=== PATIENT | male | born 1950 | race Caucasian/White ===

== ENCOUNTER 2021-01-14 14:42 | Observation (INO) | payer MEDICARE, MEDICAID ==
[2021-01-14] MEDS ORDERED: Sodium Chloride 0.9% 10 ML Syringe FLUSH PRN (15:13)
[2021-01-14] MEDS ORDERED: Sodium Chloride 0.9% 2.5 ML Syringe FLUSH PRN (15:13)
[2021-01-14] MEDS ORDERED: Sodium Chloride 0.9% 1,000 ML IV ONE (15:14)
--- NOTE | 2021-01-14 15:21 | EDM.PDOC ---
ED HPI GENERAL MEDICAL PROBLEM - General Chief Complaint: Gastrointestinal Problem Stated Complaint: PCP WANTED PT TO BE SEEN DUE TO BLOOD RESULTS Time Seen by Provider: 01/14/21 14:48 - History of Present Illness INITIAL COMMENTS - FREE TEXT/NARRATIVE: History of present illness: [] The patient is having diarrhea for 2 weeks and back pain for longer than that. The diarrhea is gotten the point where it is liquid whenever he eats however the most he said 1 day is 4 stools. They are dark brown not black. He is lightheaded when he stands up. He feels dizzy when he stands up. He has cramps before he eats and after he eats they get worse then he has diarrhea bowel movement. He is not vomiting. He does not have fever and chills but does get sweaty frequently. The patient had an MRI for his back pain and went to the clinic today. In the clinic they ordered lab that was done at our facility. The lab work revealed elevation of BUN/creatinine and potassium and he was sent over here for further evaluation. Review of systems: As per history of present illness and below otherwise all systems reviewed and negative. Past medical history: As per history of present illness and as reviewed below otherwise noncontri butory. Surgical history: As per history of present illness and as reviewed below otherwise noncontributory. Social history: No reported history of drug or alcohol abuse. Family history: As per history of present illness and as reviewed below otherwise noncontributory. Physical exam: Constitutional - well developed, well-nourished and in no acute distress HEENT - normocephalic, no evidence of trauma - external nose and mouth normal - no mass in neck and no JVD - mucosae moist EYES - full EOM, PERRL, no icterus - no evidence of inflammation, injection, or drainage Respiratory - no respiratory distress, equal bilateral expansion, lungs clear to auscultation and no abnormal lung sounds Cardiovascular - Regular Rhythm with S1 and S2 appreciated and no murmur, gallop or rub. GI - abdomen soft without distension or organomegaly - normal bowel sounds - no guard or rebound Musculoskeletal no gross deformity of long bones or joints - no tenderness, swelling or edema Neurologic - Alert and oriented times four - CN II-XII grossly intact - motor sensory and coordination symmetrically normal Psychiatric - appropriate mood and affect with normal thought content Hematologic - No petechiae or purpura - mucosa appropriate color and sclera not pale - normal nail bed color and refill Integument -diaphoretic-no rash or evidence of trauma - normal turgor Diagnostics: [] Therapeutics: [] Impression: [] Plan: [] Definitive disposition and diagnosis as appropriate pending reevaluation and review of above. back and bilateral lower abdomen Pain Score (Numeric/FACES): 4 - Related Data Allergies Allergy/AdvReac Type Severity Reaction Status Date / Time No Known Allergies Allergy Verified 01/14/21 15:10 Past Medical History HEENT History: Reports: None Cardiovascular History: Reports: Other (See Below) Other Cardiovascular History: CABG Respiratory History: Reports: None Gastrointestinal History: Reports: None Genitourinary History: Reports: None Musculoskeletal History: Reports: None Neurological History: Reports: None Psychiatric History: Reports: None Endocrine/Metabolic History: Reports: None Hematologic History: Reports: None Immunologic History: Reports: None Oncologic (Cancer) History: Reports: None Dermatologic History: Reports: None - Infectious Disease History Infectious Disease History: Reports: None - Past Surgical History Head Surgeries/Procedures: Reports: None Social & Family History - Family History Family Medical History: No Pertinent Family History - Tobacco Use Tobacco Use Status *Q: Never Tobacco User Second Hand Smoke Exposure: No - Caffeine Use Caffeine Use: Reports: None - Recreational Drug Use Recreational Drug Use: No ED ROS GENERAL - Review of Systems Review Of Systems: Comprehensive ROS is negative, except as noted in HPI. ED EXAM, GENERAL - Physical Exam Exam: See Below Free Text/Narrative:: My physical exam is in the HPI #1 Interpretation EKG Interpretation Comments: The done 01/14/2021 at 1548 hrs. sinus rhythm heart rate 78 ND 213 QT duration [address] elevation no prior for comparison impression no obvious acute injury Course - Vital Signs Text/Narrative:: 1625 hrs. patient has renal failure or dehydration with prerenal azotemia. Hyperkalemia also. Plan to culture stool and test for Covid and placed in observation to hydrate and recheck labs in the morning. Discussed with Dr. Carrera and he agreed to place patient in observation status on his service. Last Recorded V/S: Last Vital Signs Temp 36.6 C 01/14/21 15:07 Pulse 82 01/14/21 15:11 Resp 18 01/14/21 15:11 BP 134/50 L 01/14/21 15:07 Pulse Ox 98 01/14/21 15:11 - Orders/Labs/Meds Orders: Active Orders 24 hr Category Date Time Status Admission Status [Patient Status] [ADT] Stat ADT 01/14/21 16:50 Ordered CORONAVIRUS COVID-19 KEVEN [MOLEC] Stat Lab 01/14/21 16:24 Ordered STOOL CULTURE/SHIGA TOXIN [MREF] Stat Lab 01/14/21 16:24 Ordered Sodium Chloride 0.9% [Saline Flush] Med 01/14/21 15:13 Active 10 ml FLUSH ASDIRECTED PRN Sodium Chloride 0.9% [Saline Flush] Med 01/14/21 15:13 Active 2.5 ml FLUSH ASDIRECTED PRN Saline Lock Insert [OM.PC] Stat Oth 01/14/21 15:13 Ordered Medication Orders Sodium Chloride (Sodium Chloride 0.9% 10 Ml Syringe) 10 ml FLUSH ASDIRECTED PRN PRN Reason: Keep Vein Open Last Admin: 01/14/21 15:39 Dose: 10 ml Documented by: LINDA Sodium Chloride (Sodium Chloride 0.9% 2.5 Ml Syringe) 2.5 ml FLUSH ASDIRECTED PRN PRN Reason: Keep Vein Open Last Admin: 01/14/21 15:38 Dose: 2.5 ml Documented by: LINDA Labs: Laboratory Tests 01/14/21 01/14/21 Range/Units 15:31 15:31 WBC 10.08 (4.0-11.0) K/uL RBC 4.52 (4.50-5.90) M/uL Hgb 13.7 (13.0-17.0) g/dL Hct 39.7 (38.0-50.0) % MCV 87.8 (80.0-98.0) fL MCH 30.3 (27.0-32.0) pg MCHC 34.5 (31.0-37.0) g/dL RDW Std Deviation 46.7 (28.0-62.0) fl RDW Coeff of Kasey 15 (11.0-15.0) % Plt Count 163 (150-400) K/uL MPV 10.40 (7.40-12.00) fL Neut % (Auto) 67.6 (48.0-80.0) % Lymph % (Auto) 24.5 (16.0-40.0) % [place] % (Auto) 4.1 (0.0-15.0) % Eos % (Auto) 3.6 (0.0-7.0) % Baso % (Auto) 0.2 (0.0-1.5) % Neut # (Auto) 6.8 H (1.4-5.7) K/uL Lymph # (Auto) 2.5 H (0.6-2.4) K/uL [place] # (Auto) 0.4 (0.0-0.8) K/uL Eos # (Auto) 0.4 (0.0-0.7) K/uL Baso # (Auto) 0.0 (0.0-0.1) K/uL Nucleated RBC % 0.0 /100WBC Nucleated RBCs # 0 K/uL Sodium 139 (136-148) mmol/L Potassium 5.5 H (3.5-5.1) mmol/L Chloride 107 (98-107) mmol/L Carbon Dioxide 16.4 L (21.0-32.0) mmol/L BUN 60 H (7.0-18.0) mg/dL Creatinine 2.0 H (0.8-1.3) mg/dL Est Cr Clr Drug Dosing 33.25 mL/min Estimated GFR (MDRD) 33.2 ml/min Glucose 160 H (74-106) mg/dL Calcium 9.1 (8.5-10.1) mg/dL Magnesium 2.3 (1.8-2.4) mg/dL Total Bilirubin 0.4 (0.2-1.0) mg/dL AST 31 (15-37) IU/L ALT 63 (14-63) IU/L Alkaline Phosphatase 119 H (46-116) U/L Troponin I < 0.050 (0.000-0.056) ng/mL Total Protein 7.7 (6.4-8.2) g/dL Albumin 3.8 (3.4-5.0) g/dL Globulin 3.9 (2.6-4.0) g/dL Albumin/Globulin Ratio 1.0 (0.9-1.6) Meds: Medications Generic Name Dose Route Start Last Admin Trade Name Freq PRN Reason Stop Dose Admin Sodium Chloride 10 ml 08/10/21 15:13 01/14/21 15:39 Sodium Chloride 0.9% 10 Ml Syringe FLUSH 10 ml ASDIRECTED PRN Administration Keep Vein Open Sodium Chloride 2.5 ml 01/14/21 15:13 01/14/21 15:38 Sodium Chloride 0.9% 2.5 Ml Syringe FLUSH 2.5 ml ASDIRECTED PRN Administration Keep Vein Open Discontinued Medications Generic Name Dose Route Start Last Admin Trade Name Lidia PRN Reason Stop Dose Admin Dicyclomine HCl 10 mg 01/14/21 15:41 01/14/21 16:04 Dicyclomine 10 Mg Cap PO 01/14/21 15:42 10 mg ONETIME ONE Administration Sodium Chloride 1,000 mls @ 1,000 mls/hr 01/14/21 15:14 01/14/21 15:38 Normal Saline IV 01/14/21 16:13 1,000 mls/hr .Bolus ONE Administration Departure - Departure Time of Disposition: 16:52 Disposition: Refer to Observation Condition: Good Clinical Impression: Diarrhea, Dehydration, Acute renal injury, Hyperkalemia - Discharge Information Referrals: Tamera Hester DO [Primary Care Provider] - Forms: ED Department Discharge Sepsis Event Note (ED) - Evaluation Sepsis Screening Result: No Definite Risk - Focused Exam Vital Signs: Vital Signs Temp Pulse Resp BP Pulse Ox 01/14/21 15:11 82 18 98 01/14/21 15:07 36.6 C 84 18 134/50 L 97 - My Orders Last 24 Hours: My Active Orders 01/14/21 15:13 Sodium Chloride 0.9% [Saline Flush] 10 ml FLUSH ASDIRECTED PRN Sodium Chloride 0.9% [Saline Flush] 2.5 ml FLUSH ASDIRECTED PRN Saline Lock Insert [OM.PC] Stat 01/14/21 16:24 CORONAVIRUS COVID-19 KEVEN [MOLEC] Stat STOOL CULTURE/SHIGA TOXIN [MREF] Stat 01/14/21 16:50 Admission Status [Patient Status] [ADT] Stat - Assessment/Plan Last 24 Hours: My Active Orders 01/14/21 15:13 Sodium Chloride 0.9% [Saline Flush] 10 ml FLUSH ASDIRECTED PRN Sodium Chloride 0.9% [Saline Flush] 2.5 ml FLUSH ASDIRECTED PRN Saline Lock Insert [OM.PC] Stat 01/14/21 16:24 CORONAVIRUS COVID-19 KEVEN [MOLEC] Stat STOOL CULTURE/SHIGA TOXIN [MREF] Stat 01/14/21 16:50 Admission Status [Patient Status] [ADT] Stat
[2021-01-14] MEDS ORDERED: Dicyclomine 10 MG Cap PO ONE (15:41)
[2021-01-14 16:04] LABS: BLOOD UREA NITROGEN,BUN 60 mg/dL (7.0-18.0); CARBON DIOXIDE,CO2 16.4 mmol/L (21.0-32.0); CHLORIDE,CL 107 mmol/L (98-107); GLUCOSE RANDOM 160 mg/dL (74-106); POTASSIUM,K 5.5 mmol/L (3.5-5.1); SODIUM,NA 139 mmol/L (136-148)
--- NOTE | 2021-01-14 16:09 | CR ---
INDICATION: Back chest pain TECHNIQUE: Chest radiograph 1 view COMPARISON: None FINDINGS: Mediastinum: The mediastinum is normal in appearance. The heart silhouette is normal in size and morphology. The patient is status post coronary artery bypass surgery. Lung: Both lungs are unremarkable in appearance. No sign of pleural effusion seen. No pneumothorax is identified. Bone and Soft tissue: Unremarkable for age. IMPRESSION: 1. No acute cardiopulmonary disease is seen. Dictated by: Ventura Boucher MD @ 01/14/2021 16:07:23 (Electronically Signed)
[2021-01-14] MEDS ORDERED: Acetaminophen/HYDROcodone 325-10 MG Tab PO ONE (17:27)
[2021-01-14] MEDS ORDERED: Cyclobenzaprine 10 MG Tab PO ONE (17:29)
--- NOTE | 2021-01-14 18:01 | PCM.HP.2 ---
H&P History of Present Illness - General Date of Service: 01/14/21 Admit Problem/Dx: Admission Diagnosis/Problem Admission Diagnosis/Problem Hyperkalemia - History of Present Illness Initial Comments - Free Text/Narative: 70-year-old male with a history of DM 2, HTN, CABG 3 vessel 6 years ago and 3 stent placements presents to the ER complaining of diarrhea for 2 weeks. Patient states that he has been experiencing up to 3 watery stools per day associated with abdominal cramping. He states that after eating anything he has an episode of diarrhea and abdominal cramping. Stools are watery, nonbloody with no mucus. He does feel dizzy when he stands too quickly. Patient denies sick contacts. He denies fever, chills, headaches, dysuria, hematuria, palpitations, shortness of breath, joint pain or nausea/vomiting. Patient does have a history of chronic back pain. Patient has a history of DM and his last A1c was 5.6 which was done 3 weeks ago. Patient also states he has a history of pancreatitis. Patient had lab work done earlier today as well as a back MRI. CMP revealed elevated BUN and creatinine and potassium of 5.5. While in the ER patient had one episode of central nonradiating anterior chest pain for 1 minute. No left arm or jaw pain. EKG was done which showed sinus rhythm. Troponin negative. Pt is not taking nitroglycerin. ER course: Temperature 36.6. Pulse 82. RR 18. Blood pressure 134/50. 98% on room air. Stool cultures pending. WBC 10. Hemoglobin 13.7. Platelet 163. Sodium 139. Potassium 5.5. Chloride 107. Bicarb 16.4. BUN 60. Creatinine 2.0. Blood glucose 160. Calcium 9.1. Magnesium 2.3. Alk phos 119. Troponin negative. Patient received dicyclomine 10 mg. 1 L normal saline bolus. Chest x-ray: No acute cardiopulmonary disease. EKG 1548 hrs. sinus rhythm heart rate 78 AR 213 QT duration [address] elevation no prior for comparison impression no obvious acute injury. Repeat EKG after chest pain episode at 1652 hrs: Sinus rhythm, HR 78, AR 215, axis 57, normal QRS, normal ST and T, prolonged AR interval compared to previous EKG. No change impression, no acute injury obvious. Past medical history: Medical records unavailable. Peripheral vascular disease, DM 2, HTN, CABG, questionable pancreatic pathology, chronic back pain secondary to disc displacement. Past surgical history: History of back surgeries. Medications: Baclofen 20 mg 3 times daily as needed. Benazepril 20 mg daily. Empagliflozin 25 mg daily. [place] 5-325 mg twice daily as needed. Insulin degludec 100 units with breakfast. Liraglutide 1.8 mg daily. Prasugrel 10 mg daily. Atorvastatin 40 mg daily. Hydrochlorothiazide 25 mg daily. Allergies: No known drug allergies Social history: Patient is from [place] and moved here 3 months ago to live with his daughter. Quit smoking 2 years ago. Smoked 1 pack/day for 40 years. History of social alcohol use. Denies illicit drug use. CODE STATUS: Full code back and bilateral lower abdomen Pain Score (Numeric/FACES): 4 - Related Data Allergies/Adverse Reactions: Allergies Allergy/AdvReac Type Severity Reaction Status Date / Time No Known Allergies Allergy Verified 01/14/21 15:10 Home Medications: Home Meds Baclofen 20 mg PO TID PRN 01/14/21 [History] Benazepril [Lotensin] 20 mg PO DAILY 01/14/21 [History] Empagliflozin [Jardiance] 25 mg PO QAM 01/14/21 [History] Hydrocodone/Acetaminophen [HYDROcodone-Acetaminophen 5-325 MG] 1 each PO BID PRN 01/14/21 [History] Insulin Degludec [Tresiba] 100 unit SQ ACBREAKFAST 01/14/21 [History] Liraglutide [Victoza 2-Roman] 1.8 mg SQ DAILY 01/14/21 [History] Prasugrel HCl [Effient] 10 mg PO DAILY 01/14/21 [History] atorvaSTATin [Lipitor] 40 mg PO BEDTIME 01/14/21 [History] hydroCHLOROthiazide [Hydrochlorothiazide] 25 mg PO DAILY 01/14/21 [History] Past Medical History HEENT History: Reports: None Cardiovascular History: Reports: Other (See Below) Other Cardiovascular History: CABG Respiratory History: Reports: None Gastrointestinal History: Reports: None Genitourinary History: Reports: None Musculoskeletal History: Reports: None Neurological History: Reports: None Psychiatric History: Reports: None Endocrine/Metabolic History: Reports: None Hematologic History: Reports: None Immunologic History: Reports: None Oncologic (Cancer) History: Reports: None Dermatologic History: Reports: None - Infectious Disease History Infectious Disease History: Reports: None - Past Surgical History Head Surgeries/Procedures: Reports: None Social & Family History - Family History Family Medical History: No Pertinent Family History - Tobacco Use Tobacco Use Status *Q: Never Tobacco User Second Hand Smoke Exposure: No - Caffeine Use Caffeine Use: Reports: None - Recreational Drug Use Recreational Drug Use: No H&P Review of Systems - Review of Systems: Review Of Systems: Comprehensive ROS is negative, except as noted in HPI. Exam - Exam Exam: See Below - Vital Signs Vital Signs: Last Vital Signs Temp 97.8 F 01/14/21 15:07 Pulse 82 01/14/21 15:11 Resp 18 01/14/21 15:11 BP 134/50 L 01/14/21 15:07 Pulse Ox 98 01/14/21 15:11 Weight: 178 lb - Exam General: Alert, Oriented, Cooperative HEENT: Conjunctiva Clear, EOMI. No: Mucosa Moist & [place] Neck: Supple. No: Lymphadenopathy, JVD Lungs: Clear to Auscultation. No: Crackles, Rales, Wheezing Cardiovascular: Regular Rate, Regular Rhythm, Normal S1, Normal S2 GI/Abdominal Exam: Soft, Non-Tender, No Distention. No: Distended, Guarding, Rigid, Rebound Back Exam: Paraspinal Tenderness Extremities: Normal Inspection. No: Pedal Edema, Curtis's Sign, Leg Pain Peripheral Pulses: 2+: Dorsalis Pedis (L), Dorsalis Pedis (R) Skin: Warm, Intact Neurological: Reflexes Equal Bilateral Neuro Extensive - Mental Status: Alert, Oriented x3, Normal Mood/Affect, Normal Cognition, Memory Intact Psychiatric: Alert, Normal Affect - Patient Data Lab Results Last 24 hrs: Laboratory Results - last 24 hr 01/14/21 01/14/21 01/14/21 Range/Units 15:31 15:31 15:31 WBC 10.08 (4.0-11.0) K/uL RBC 4.52 (4.50-5.90) M/uL Hgb 13.7 (13.0-17.0) g/dL Hct 39.7 (38.0-50.0) % MCV 87.8 (80.0-98.0) fL MCH 30.3 (27.0-32.0) pg MCHC 34.5 (31.0-37.0) g/dL RDW Std Deviation 46.7 (28.0-62.0) fl RDW Coeff of Kasey 15 (11.0-15.0) % Plt Count 163 (150-400) K/uL MPV 10.40 (7.40-12.00) fL Neut % (Auto) 67.6 (48.0-80.0) % Lymph % (Auto) 24.5 (16.0-40.0) % [place] % (Auto) 4.1 (0.0-15.0) % Eos % (Auto) 3.6 (0.0-7.0) % Baso % (Auto) 0.2 (0.0-1.5) % Neut # (Auto) 6.8 H (1.4-5.7) K/uL Lymph # (Auto) 2.5 H (0.6-2.4) K/uL [place] # (Auto) 0.4 (0.0-0.8) K/uL Eos # (Auto) 0.4 (0.0-0.7) K/uL Baso # (Auto) 0.0 (0.0-0.1) K/uL Nucleated RBC % 0.0 /100WBC Nucleated RBCs # 0 K/uL Sodium 139 (136-148) mmol/L Potassium 5.5 H (3.5-5.1) mmol/L Chloride 107 (98-107) mmol/L Carbon Dioxide 16.4 L (21.0-32.0) mmol/L BUN 60 H (7.0-18.0) mg/dL Creatinine 2.0 H (0.8-1.3) mg/dL Est Cr Clr Drug Dosing 33.25 mL/min Estimated GFR (MDRD) 33.2 ml/min Glucose 160 H (74-106) mg/dL Calcium 9.1 (8.5-10.1) mg/dL Magnesium 2.3 (1.8-2.4) mg/dL Total Bilirubin 0.4 (0.2-1.0) mg/dL AST 31 (15-37) IU/L ALT 63 (14-63) IU/L Alkaline Phosphatase 119 H (46-116) U/L Troponin I < 0.050 < 0.050 (0.000-0.056) ng/mL Total Protein 7.7 (6.4-8.2) g/dL Albumin 3.8 (3.4-5.0) g/dL Globulin 3.9 (2.6-4.0) g/dL Albumin/Globulin Ratio 1.0 (0.9-1.6) Result Diagrams: 01/14/21 15:31 01/14/21 15:31 Sepsis Event Note - Evaluation Sepsis Screening Result: No Definite Risk - Focused Exam Vital Signs: Vital Signs Temp Pulse Resp BP Pulse Ox 01/14/21 15:11 82 18 98 01/14/21 15:07 97.8 F 84 18 134/50 L 97 - Problem List (1) Acute kidney injury SNOMED Code(s): 69907844, 53619213 ICD Code: N17.9 - ACUTE KIDNEY FAILURE, UNSPECIFIED Status: Acute Current Visit: Yes (2) Atypical chest pain SNOMED Code(s): 701737157 ICD Code: R07.89 - OTHER CHEST PAIN Status: Acute Current Visit: Yes (3) Dehydration SNOMED Code(s): 85811547 ICD Code: E86.0 - DEHYDRATION Status: Acute Current Visit: Yes (4) Diarrhea SNOMED Code(s): 20611818 ICD Code: R19.7 - DIARRHEA, UNSPECIFIED Status: Acute Current Visit: Yes (5) Hyperkalemia SNOMED Code(s): 41818609 ICD Code: E87.5 - HYPERKALEMIA Status: Acute Current Visit: Yes Problem List Initiated/Reviewed/Updated: Yes Orders Last 24hrs: Active Orders 24 hr Category Date Time Status Admission Status [Patient Status] [ADT] Stat ADT 01/14/21 17:30 Active Telemetry Monitoring [Cardiac Monitoring] [RC] . Care 01/14/21 17:38 Active DIRECTED STOOL CULTURE/SHIGA TOXIN [MREF] Stat Lab 01/14/21 16:24 Ordered TROPONIN I [CHEM] Stat Lab 01/14/21 20:00 Ordered TROPONIN I [CHEM] Stat Lab 01/15/21 00:05 Ordered Sodium Chloride 0.9% [Saline Flush] Med 01/14/21 15:13 Active 10 ml FLUSH ASDIRECTED PRN Sodium Chloride 0.9% [Saline Flush] Med 01/14/21 15:13 Active 2.5 ml FLUSH ASDIRECTED PRN Saline Lock Insert [OM.PC] Stat Oth 01/14/21 15:13 Ordered Medication Orders Sodium Chloride (Sodium Chloride 0.9% 10 Ml Syringe) 10 ml FLUSH ASDIRECTED PRN PRN Reason: Keep Vein Open Last Admin: 01/14/21 15:39 Dose: 10 ml Documented by: LINDA Sodium Chloride (Sodium Chloride 0.9% 2.5 Ml Syringe) 2.5 ml FLUSH ASDIRECTED PRN PRN Reason: Keep Vein Open Last Admin: 01/14/21 15:38 Dose: 2.5 ml Documented by: LINDA Assessment/Plan Comment:: 70-year-old male with a history of CABG, DM and hypertension being admitted for ACS rule out, acute kidney injury, diarrhea and mildly elevated potassium. Monitor the patient on telemetry. Trend troponins. No ischemic changes on EKG. Repeat EKG if patient has another episode of chest pain. Hemoglobin A1c 5.6 (3wks ago). For his YENNY we will start the patient on maintenance fluids. Avoid nephrotoxic medications, no ARIANE inhibitors. Repeat BMP in the morning. Continue antihypertensives. Stool culture pending. Diabetic diet. Sliding scale insulin.
[2021-01-14] MEDS ORDERED: Acetaminophen 325 MG Tab PO PRN (18:35)
[2021-01-14] MEDS ORDERED: Glucagon,Human Recombinant 1 MG Vial IM PRN (18:48)
[2021-01-14] MEDS ORDERED: 50% Dextrose in Water 50 ML Syringe IVPUSH PRN (18:48)
[2021-01-14] MEDS ORDERED: Acetaminophen/HYDROcodone 325-5 MG Tab PO PRN (19:02)
[2021-01-14] MEDS: Sodium Chloride 0.9% 1,000 ML IV SCH (21:24)
[2021-01-15] MEDS: Baclofen 10 MG Tab PO PRN ×3 (00:24→20:23)
[2021-01-15] MEDS: Sodium Chloride 0.9% 1,000 ML IV SCH ×2 (05:34→14:37)
[2021-01-15 06:29] LABS: CARBON DIOXIDE,CO2 15.3 mmol/L (21.0-32.0); POTASSIUM,K 5.2 mmol/L (3.5-5.1)
[2021-01-15] MEDS ORDERED: INSULIN DEGLUDEC 80 UNIT SUBCUT SCH (07:30)
[2021-01-15] MEDS ORDERED: Non-Formulary Medication 1 Each (Insulin Degludec [Tresiba] 100 UNIT/ML Vial) SQ SCH (07:30)
[2021-01-15] MEDS: Insulin Aspart 100 Units/ML 3 ML Pen SUBCUT SCH ×3 (07:49→17:20)
[2021-01-15] MEDS: Prasugrel Hcl [Effient] 10 MG Tablet PO SCH (08:58)
[2021-01-15] MEDS: Acetaminophen/HYDROcodone 325-5 MG Tab PO PRN ×3 (09:31→22:30)
[2021-01-15] MEDS: Insulin Glargine,Human Rec. Analog 100 Units/ML 3 ML Pen SUBCUT SCH (10:29)
--- NOTE | 2021-01-15 11:25 | PCM.PN ---
- General Info Date of Service: 01/15/21 Admission Dx/Problem (Free Text): Admission Diagnosis/Problem Admission Diagnosis/Problem Hyperkalemia Subjective Update: 70-year-old male from [place] is admitted for ACS rule out, YENNY and diarrhea. Patient states that he longer has diarrhea and is feeling slightly better. Patient is a history of chronic back pain and MRI yesterday showed disc protrusion. He does complain of severe back pain and is on [place]. He denies chest pain or palpitations. He denies headaches. He denies muscle pain. He does state he has a history of peripheral vascular disease with stent placement in his left leg. He does complain of some left leg pain which is chronic. - Review of Systems General: Reports: No Symptoms HEENT: Reports: No Symptoms Pulmonary: Reports: No Symptoms Cardiovascular: Reports: No Symptoms Gastrointestinal: Reports: Decreased Appetite Genitourinary: Reports: No Symptoms Musculoskeletal: Reports: Leg Pain Skin: Reports: No Symptoms Neurological: Reports: No Symptoms - Patient Data Vitals - Most Recent: Last Vital Signs Temp 96.5 F L 01/15/21 08:00 Pulse 70 01/15/21 08:00 Resp 16 01/15/21 08:00 BP 123/57 L 01/15/21 08:00 Pulse Ox 96 01/15/21 08:00 Weight - Most Recent: 181 lb 12.8 oz I&O - Last 24 Hours: Intake & Output 01/14/21 01/15/21 01/15/21 22:59 06:59 14:59 Intake Total 1940 Output Total 900 Balance 1040 Lab Results Last 24 Hours: Laboratory Results - last 24 hr 01/14/21 01/14/21 01/14/21 Range/Units 15:31 15:31 15:31 WBC 10.08 (4.0-11.0) K/uL RBC 4.52 (4.50-5.90) M/uL Hgb 13.7 (13.0-17.0) g/dL Hct 39.7 (38.0-50.0) % MCV 87.8 (80.0-98.0) fL MCH 30.3 (27.0-32.0) pg MCHC 34.5 (31.0-37.0) g/dL RDW Std Deviation 46.7 (28.0-62.0) fl RDW Coeff of Kasey 15 (11.0-15.0) % Plt Count 163 (150-400) K/uL MPV 10.40 (7.40-12.00) fL Neut % (Auto) 67.6 (48.0-80.0) % Lymph % (Auto) 24.5 (16.0-40.0) % [place] % (Auto) 4.1 (0.0-15.0) % Eos % (Auto) 3.6 (0.0-7.0) % Baso % (Auto) 0.2 (0.0-1.5) % Neut # (Auto) 6.8 H (1.4-5.7) K/uL Lymph # (Auto) 2.5 H (0.6-2.4) K/uL [place] # (Auto) 0.4 (0.0-0.8) K/uL Eos # (Auto) 0.4 (0.0-0.7) K/uL Baso # (Auto) 0.0 (0.0-0.1) K/uL Nucleated RBC % 0.0 /100WBC Nucleated RBCs # 0 K/uL Sodium 139 (136-148) mmol/L Potassium 5.5 H (3.5-5.1) mmol/L Chloride 107 (98-107) mmol/L Carbon Dioxide 16.4 L (21.0-32.0) mmol/L BUN 60 H (7.0-18.0) mg/dL Creatinine 2.0 H (0.8-1.3) mg/dL Est Cr Clr Drug Dosing 33.25 mL/min Estimated GFR (MDRD) 33.2 ml/min Glucose 160 H (74-106) mg/dL POC Glucose (70-99) mg/dL Calcium 9.1 (8.5-10.1) mg/dL Magnesium 2.3 (1.8-2.4) mg/dL Total Bilirubin 0.4 (0.2-1.0) mg/dL AST 31 (15-37) IU/L ALT 63 (14-63) IU/L Alkaline Phosphatase 119 H (46-116) U/L Troponin I < 0.050 < 0.050 (0.000-0.056) ng/mL Total Protein 7.7 (6.4-8.2) g/dL Albumin 3.8 (3.4-5.0) g/dL Globulin 3.9 (2.6-4.0) g/dL Albumin/Globulin Ratio 1.0 (0.9-1.6) SARS-CoV-2 RNA (KEVEN) (NEGATIVE) 01/14/21 01/14/21 01/15/21 Range/Units 18:32 20:00 00:15 WBC (4.0-11.0) K/uL RBC (4.50-5.90) M/uL Hgb (13.0-17.0) g/dL Hct (38.0-50.0) % MCV (80.0-98.0) fL MCH (27.0-32.0) pg MCHC (31.0-37.0) g/dL RDW Std Deviation (28.0-62.0) fl RDW Coeff of Kasey (11.0-15.0) % Plt Count (150-400) K/uL MPV (7.40-12.00) fL Neut % (Auto) (48.0-80.0) % Lymph % (Auto) (16.0-40.0) % [place] % (Auto) (0.0-15.0) % Eos % (Auto) (0.0-7.0) % Baso % (Auto) (0.0-1.5) % Neut # (Auto) (1.4-5.7) K/uL Lymph # (Auto) (0.6-2.4) K/uL [place] # (Auto) (0.0-0.8) K/uL Eos # (Auto) (0.0-0.7) K/uL Baso # (Auto) (0.0-0.1) K/uL Nucleated RBC % /100WBC Nucleated RBCs # K/uL Sodium (136-148) mmol/L Potassium (3.5-5.1) mmol/L Chloride (98-107) mmol/L Carbon Dioxide (21.0-32.0) mmol/L BUN (7.0-18.0) mg/dL Creatinine (0.8-1.3) mg/dL Est Cr Clr Drug Dosing mL/min Estimated GFR (MDRD) ml/min Glucose (74-106) mg/dL POC Glucose (70-99) mg/dL Calcium (8.5-10.1) mg/dL Magnesium (1.8-2.4) mg/dL Total Bilirubin (0.2-1.0) mg/dL AST (15-37) IU/L ALT (14-63) IU/L Alkaline Phosphatase (46-116) U/L Troponin I < 0.050 < 0.050 (0.000-0.056) ng/mL Total Protein (6.4-8.2) g/dL Albumin (3.4-5.0) g/dL Globulin (2.6-4.0) g/dL Albumin/Globulin Ratio (0.9-1.6) SARS-CoV-2 RNA (KEVEN) NEGATIVE (NEGATIVE) 01/15/21 01/15/21 01/15/21 Range/Units 05:10 05:10 06:44 WBC 7.04 (4.0-11.0) K/uL RBC 4.19 L (4.50-5.90) M/uL Hgb 12.3 L (13.0-17.0) g/dL Hct 37.0 L (38.0-50.0) % MCV 88.3 (80.0-98.0) fL MCH 29.4 (27.0-32.0) pg MCHC 33.2 (31.0-37.0) g/dL RDW Std Deviation 47.3 (28.0-62.0) fl RDW Coeff of Kasey 15 (11.0-15.0) % Plt Count 133 L (150-400) K/uL MPV 10.30 (7.40-12.00) fL Neut % (Auto) 51.0 (48.0-80.0) % Lymph % (Auto) 40.3 H (16.0-40.0) % [place] % (Auto) 4.3 (0.0-15.0) % Eos % (Auto) 4.0 (0.0-7.0) % Baso % (Auto) 0.4 (0.0-1.5) % Neut # (Auto) 3.6 (1.4-5.7) K/uL Lymph # (Auto) 2.8 H (0.6-2.4) K/uL [place] # (Auto) 0.3 (0.0-0.8) K/uL Eos # (Auto) 0.3 (0.0-0.7) K/uL Baso # (Auto) 0.0 (0.0-0.1) K/uL Nucleated RBC % 0.0 /100WBC Nucleated RBCs # 0 K/uL Sodium 140 (136-148) mmol/L Potassium 5.2 H (3.5-5.1) mmol/L Chloride 111 H (98-107) mmol/L Carbon Dioxide 15.3 L (21.0-32.0) mmol/L BUN 60 H (7.0-18.0) mg/dL Creatinine 1.5 H (0.8-1.3) mg/dL Est Cr Clr Drug Dosing 44.50 mL/min Estimated GFR (MDRD) 46.3 ml/min Glucose 134 H (74-106) mg/dL POC Glucose 119 H (70-99) mg/dL Calcium 8.3 L (8.5-10.1) mg/dL Magnesium (1.8-2.4) mg/dL Total Bilirubin 0.3 (0.2-1.0) mg/dL AST 16 (15-37) IU/L ALT 65 H (14-63) IU/L Alkaline Phosphatase 100 (46-116) U/L Troponin I (0.000-0.056) ng/mL Total Protein 6.8 (6.4-8.2) g/dL Albumin 3.4 (3.4-5.0) g/dL Globulin 3.4 (2.6-4.0) g/dL Albumin/Globulin Ratio 1.0 (0.9-1.6) SARS-CoV-2 RNA (KEVEN) (NEGATIVE) 01/15/21 Range/Units 10:27 WBC (4.0-11.0) K/uL RBC (4.50-5.90) M/uL Hgb (13.0-17.0) g/dL Hct (38.0-50.0) % MCV (80.0-98.0) fL MCH (27.0-32.0) pg MCHC (31.0-37.0) g/dL RDW Std Deviation (28.0-62.0) fl RDW Coeff of Kasey (11.0-15.0) % Plt Count (150-400) K/uL MPV (7.40-12.00) fL Neut % (Auto) (48.0-80.0) % Lymph % (Auto) (16.0-40.0) % [place] % (Auto) (0.0-15.0) % Eos % (Auto) (0.0-7.0) % Baso % (Auto) (0.0-1.5) % Neut # (Auto) (1.4-5.7) K/uL Lymph # (Auto) (0.6-2.4) K/uL [place] # (Auto) (0.0-0.8) K/uL Eos # (Auto) (0.0-0.7) K/uL Baso # (Auto) (0.0-0.1) K/uL Nucleated RBC % /100WBC Nucleated RBCs # K/uL Sodium (136-148) mmol/L Potassium (3.5-5.1) mmol/L Chloride (98-107) mmol/L Carbon Dioxide (21.0-32.0) mmol/L BUN (7.0-18.0) mg/dL Creatinine (0.8-1.3) mg/dL Est Cr Clr Drug Dosing mL/min Estimated GFR (MDRD) ml/min Glucose (74-106) mg/dL POC Glucose 139 H (70-99) mg/dL Calcium (8.5-10.1) mg/dL Magnesium (1.8-2.4) mg/dL Total Bilirubin (0.2-1.0) mg/dL AST (15-37) IU/L ALT (14-63) IU/L Alkaline Phosphatase (46-116) U/L Troponin I (0.000-0.056) ng/mL Total Protein (6.4-8.2) g/dL Albumin (3.4-5.0) g/dL Globulin (2.6-4.0) g/dL Albumin/Globulin Ratio (0.9-1.6) SARS-CoV-2 RNA (KEVEN) (NEGATIVE) Med Orders - Current: Current Medications Acetaminophen (Acetaminophen 325 Mg Tab) 650 mg PO Q4H PRN PRN Reason: Pain (Mild 1-3)/fever Last Admin: 01/15/21 02:27 Dose: 650 mg Documented by: Hydrocodone Bitart/Acetaminophen (Acetaminophen/Hydrocodone 325-5 Mg Tab) 1 tab PO Q6H PRN PRN Reason: Pain Last Admin: 01/15/21 09:31 Dose: 1 tab Documented by: Baclofen (Baclofen 10 Mg Tab) 20 mg PO TID PRN PRN Reason: muscle spasms Last Admin: 01/15/21 08:55 Dose: 20 mg Documented by: Dextrose/Water (50% Dextrose In Water 50 Ml Syringe) 50 ml IVPUSH ASDIRECTED PRN PRN Reason: Hypoglycemia Glucagon (Glucagon,Human Recombinant 1 Mg Vial) 1 mg IM ASDIRECTED PRN PRN Reason: Hypoglycemia Sodium Chloride (Normal Saline) 1,000 mls @ 125 mls/hr IV ASDIRECTED STANISLAW Last Admin: 01/15/21 05:34 Dose: 125 mls/hr Documented by: Insulin Aspart (Insulin Aspart 100 Units/Ml 3 Ml Pen) 0 unit SUBCUT TIDAC [facility]; Protocol Last Admin: 01/15/21 07:49 Dose: Not Given Documented by: Insulin Glargine (Insulin Glargine,Human Rec. Analog 100 Units/Ml 3 Ml Pen) 80 units SUBCUT DAILY [facility] Last Admin: 01/15/21 10:29 Dose: 80 units Documented by: Prasugrel Hcl [ Effient] 10 Mg Tablet 1 each PO DAILY [facility] Last Admin: 01/15/21 08:58 Dose: Not Given Documented by: Sodium Chloride (Sodium Chloride 0.9% 10 Ml Syringe) 10 ml FLUSH ASDIRECTED PRN PRN Reason: Keep Vein Open Last Admin: 01/14/21 15:39 Dose: 10 ml Documented by: Sodium Chloride (Sodium Chloride 0.9% 2.5 Ml Syringe) 2.5 ml FLUSH ASDIRECTED PRN PRN Reason: Keep Vein Open Last Admin: 01/14/21 15:38 Dose: 2.5 ml Documented by: Discontinued Medications Hydrocodone Bitart/Acetaminophen (Acetaminophen/Hydrocodone 325-10 Mg Tab) 1 tab PO ONETIME ONE Stop: 01/14/21 17:28 Last Admin: 01/14/21 17:58 Dose: 1 tab Documented by: Hydrocodone Bitart/Acetaminophen (Acetaminophen/Hydrocodone 325-5 Mg Tab) 1 tab PO BID PRN PRN Reason: Pain Last Admin: 01/14/21 21:22 Dose: 1 tab Documented by: Cyclobenzaprine HCl (Cyclobenzaprine 10 Mg Tab) 10 mg PO ONETIME ONE Stop: 01/14/21 17:30 Last Admin: 01/14/21 17:58 Dose: 10 mg Documented by: Dicyclomine HCl (Dicyclomine 10 Mg Cap) 10 mg PO ONETIME ONE Stop: 01/14/21 15:42 Last Admin: 01/14/21 16:04 Dose: 10 mg Documented by: Sodium Chloride (Normal Saline) 1,000 mls @ 1,000 mls/hr IV .Bolus ONE Stop: 01/14/21 16:13 Last Admin: 01/14/21 15:38 Dose: 1,000 mls/hr Documented by: Non-Formulary Medication (Insulin Degludec [Tresiba]) 100 unit SQ ACBREAKFAST STANISLAW Insulin Degludec [ (Tresiba] 80 Unit) 1 each SUBCUT ACBREAKFAST STANISLAW Last Admin: 01/15/21 07:54 Dose: Not Given Documented by: - Exam General: Alert, Oriented HEENT: Pupils Reactive Neck: Supple Lungs: Clear to Auscultation Cardiovascular: Regular Rate, Regular Rhythm, No Murmurs GI/Abdominal Exam: Soft, Non-Tender Back Exam: Muscle Spasm, Paraspinal Tenderness. No: Vertebral Tenderness Extremities: Normal Inspection, No Pedal Edema. No: Curtis's Sign Peripheral Pulses: 2+: Dorsalis Pedis (L), Dorsalis Pedis (R) Skin: Warm, Dry Neurological: No New Focal Deficit - Patient Data Lab Results Last 24 hrs: Laboratory Results - last 24 hr 01/14/21 01/14/21 01/14/21 Range/Units 15:31 15:31 15:31 WBC 10.08 (4.0-11.0) K/uL RBC 4.52 (4.50-5.90) M/uL Hgb 13.7 (13.0-17.0) g/dL Hct 39.7 (38.0-50.0) % MCV 87.8 (80.0-98.0) fL MCH 30.3 (27.0-32.0) pg MCHC 34.5 (31.0-37.0) g/dL RDW Std Deviation 46.7 (28.0-62.0) fl RDW Coeff of Kasey 15 (11.0-15.0) % Plt Count 163 (150-400) K/uL MPV 10.40 (7.40-12.00) fL Neut % (Auto) 67.6 (48.0-80.0) % Lymph % (Auto) 24.5 (16.0-40.0) % [place] % (Auto) 4.1 (0.0-15.0) % Eos % (Auto) 3.6 (0.0-7.0) % Baso % (Auto) 0.2 (0.0-1.5) % Neut # (Auto) 6.8 H (1.4-5.7) K/uL Lymph # (Auto) 2.5 H (0.6-2.4) K/uL [place] # (Auto) 0.4 (0.0-0.8) K/uL Eos # (Auto) 0.4 (0.0-0.7) K/uL Baso # (Auto) 0.0 (0.0-0.1) K/uL Nucleated RBC % 0.0 /100WBC Nucleated RBCs # 0 K/uL Sodium 139 (136-148) mmol/L Potassium 5.5 H (3.5-5.1) mmol/L Chloride 107 (98-107) mmol/L Carbon Dioxide 16.4 L (21.0-32.0) mmol/L BUN 60 H (7.0-18.0) mg/dL Creatinine 2.0 H (0.8-1.3) mg/dL Est Cr Clr Drug Dosing 33.25 mL/min Estimated GFR (MDRD) 33.2 ml/min Glucose 160 H (74-106) mg/dL POC Glucose (70-99) mg/dL Calcium 9.1 (8.5-10.1) mg/dL Magnesium 2.3 (1.8-2.4) mg/dL Total Bilirubin 0.4 (0.2-1.0) mg/dL AST 31 (15-37) IU/L ALT 63 (14-63) IU/L Alkaline Phosphatase 119 H (46-116) U/L Troponin I < 0.050 < 0.050 (0.000-0.056) ng/mL Total Protein 7.7 (6.4-8.2) g/dL Albumin 3.8 (3.4-5.0) g/dL Globulin 3.9 (2.6-4.0) g/dL Albumin/Globulin Ratio 1.0 (0.9-1.6) SARS-CoV-2 RNA (KEVEN) (NEGATIVE) 01/14/21 01/14/21 01/15/21 Range/Units 18:32 20:00 00:15 WBC (4.0-11.0) K/uL RBC (4.50-5.90) M/uL Hgb (13.0-17.0) g/dL Hct (38.0-50.0) % MCV (80.0-98.0) fL MCH (27.0-32.0) pg MCHC (31.0-37.0) g/dL RDW Std Deviation (28.0-62.0) fl RDW Coeff of Kasey (11.0-15.0) % Plt Count (150-400) K/uL MPV (7.40-12.00) fL Neut % (Auto) (48.0-80.0) % Lymph % (Auto) (16.0-40.0) % [place] % (Auto) (0.0-15.0) % Eos % (Auto) (0.0-7.0) % Baso % (Auto) (0.0-1.5) % Neut # (Auto) (1.4-5.7) K/uL Lymph # (Auto) (0.6-2.4) K/uL [place] # (Auto) (0.0-0.8) K/uL Eos # (Auto) (0.0-0.7) K/uL Baso # (Auto) (0.0-0.1) K/uL Nucleated RBC % /100WBC Nucleated RBCs # K/uL Sodium (136-148) mmol/L Potassium (3.5-5.1) mmol/L Chloride (98-107) mmol/L Carbon Dioxide (21.0-32.0) mmol/L BUN (7.0-18.0) mg/dL Creatinine (0.8-1.3) mg/dL Est Cr Clr Drug Dosing mL/min Estimated GFR (MDRD) ml/min Glucose (74-106) mg/dL POC Glucose (70-99) mg/dL Calcium (8.5-10.1) mg/dL Magnesium (1.8-2.4) mg/dL Total Bilirubin (0.2-1.0) mg/dL AST (15-37) IU/L ALT (14-63) IU/L Alkaline Phosphatase (46-116) U/L Troponin I < 0.050 < 0.050 (0.000-0.056) ng/mL Total Protein (6.4-8.2) g/dL Albumin (3.4-5.0) g/dL Globulin (2.6-4.0) g/dL Albumin/Globulin Ratio (0.9-1.6) SARS-CoV-2 RNA (KEVEN) NEGATIVE (NEGATIVE) 01/15/21 01/15/21 01/15/21 Range/Units 05:10 05:10 06:44 WBC 7.04 (4.0-11.0) K/uL RBC 4.19 L (4.50-5.90) M/uL Hgb 12.3 L (13.0-17.0) g/dL Hct 37.0 L (38.0-50.0) % MCV 88.3 (80.0-98.0) fL MCH 29.4 (27.0-32.0) pg MCHC 33.2 (31.0-37.0) g/dL RDW Std Deviation 47.3 (28.0-62.0) fl RDW Coeff of Kasey 15 (11.0-15.0) % Plt Count 133 L (150-400) K/uL MPV 10.30 (7.40-12.00) fL Neut % (Auto) 51.0 (48.0-80.0) % Lymph % (Auto) 40.3 H (16.0-40.0) % [place] % (Auto) 4.3 (0.0-15.0) % Eos % (Auto) 4.0 (0.0-7.0) % Baso % (Auto) 0.4 (0.0-1.5) % Neut # (Auto) 3.6 (1.4-5.7) K/uL Lymph # (Auto) 2.8 H (0.6-2.4) K/uL [place] # (Auto) 0.3 (0.0-0.8) K/uL Eos # (Auto) 0.3 (0.0-0.7) K/uL Baso # (Auto) 0.0 (0.0-0.1) K/uL Nucleated RBC % 0.0 /100WBC Nucleated RBCs # 0 K/uL Sodium 140 (136-148) mmol/L Potassium 5.2 H (3.5-5.1) mmol/L Chloride 111 H (98-107) mmol/L Carbon Dioxide 15.3 L (21.0-32.0) mmol/L BUN 60 H (7.0-18.0) mg/dL Creatinine 1.5 H (0.8-1.3) mg/dL Est Cr Clr Drug Dosing 44.50 mL/min Estimated GFR (MDRD) 46.3 ml/min Glucose 134 H (74-106) mg/dL POC Glucose 119 H (70-99) mg/dL Calcium 8.3 L (8.5-10.1) mg/dL Magnesium (1.8-2.4) mg/dL Total Bilirubin 0.3 (0.2-1.0) mg/dL AST 16 (15-37) IU/L ALT 65 H (14-63) IU/L Alkaline Phosphatase 100 (46-116) U/L Troponin I (0.000-0.056) ng/mL Total Protein 6.8 (6.4-8.2) g/dL Albumin 3.4 (3.4-5.0) g/dL Globulin 3.4 (2.6-4.0) g/dL Albumin/Globulin Ratio 1.0 (0.9-1.6) SARS-CoV-2 RNA (KEVEN) (NEGATIVE) 01/15/21 Range/Units 10:27 WBC (4.0-11.0) K/uL RBC (4.50-5.90) M/uL Hgb (13.0-17.0) g/dL Hct (38.0-50.0) % MCV (80.0-98.0) fL MCH (27.0-32.0) pg MCHC (31.0-37.0) g/dL RDW Std Deviation (28.0-62.0) fl RDW Coeff of Kasey (11.0-15.0) % Plt Count (150-400) K/uL MPV (7.40-12.00) fL Neut % (Auto) (48.0-80.0) % Lymph % (Auto) (16.0-40.0) % [place] % (Auto) (0.0-15.0) % Eos % (Auto) (0.0-7.0) % Baso % (Auto) (0.0-1.5) % Neut # (Auto) (1.4-5.7) K/uL Lymph # (Auto) (0.6-2.4) K/uL [place] # (Auto) (0.0-0.8) K/uL Eos # (Auto) (0.0-0.7) K/uL Baso # (Auto) (0.0-0.1) K/uL Nucleated RBC % /100WBC Nucleated RBCs # K/uL Sodium (136-148) mmol/L Potassium (3.5-5.1) mmol/L Chloride (98-107) mmol/L Carbon Dioxide (21.0-32.0) mmol/L BUN (7.0-18.0) mg/dL Creatinine (0.8-1.3) mg/dL Est Cr Clr Drug Dosing mL/min Estimated GFR (MDRD) ml/min Glucose (74-106) mg/dL POC Glucose 139 H (70-99) mg/dL Calcium (8.5-10.1) mg/dL Magnesium (1.8-2.4) mg/dL Total Bilirubin (0.2-1.0) mg/dL AST (15-37) IU/L ALT (14-63) IU/L Alkaline Phosphatase (46-116) U/L Troponin I (0.000-0.056) ng/mL Total Protein (6.4-8.2) g/dL Albumin (3.4-5.0) g/dL Globulin (2.6-4.0) g/dL Albumin/Globulin Ratio (0.9-1.6) SARS-CoV-2 RNA (KEVEN) (NEGATIVE) Result Diagrams: 01/15/21 05:10 01/15/21 05:10 Sepsis Event Note - Evaluation Sepsis Screening Result: No Definite Risk - Focused Exam Vital Signs: Vital Signs Temp Pulse Resp BP Pulse Ox 01/15/21 08:00 96.5 F L 70 16 123/57 L 96 01/15/21 04:00 96.7 F L 70 18 116/54 L 95 01/15/21 00:00 96.3 F L 78 18 124/59 L 95 - Problem List & Annotations (1) Acute kidney injury SNOMED Code(s): 68263183, 48928485 Code(s): N17.9 - ACUTE KIDNEY FAILURE, UNSPECIFIED Status: Acute Current Visit: Yes (2) Atypical chest pain SNOMED Code(s): 743547910 Code(s): R07.89 - OTHER CHEST PAIN Status: Acute Current Visit: Yes (3) Dehydration SNOMED Code(s): 15745120 Code(s): E86.0 - DEHYDRATION Status: Acute Current Visit: Yes (4) Diarrhea SNOMED Code(s): 20332660 Code(s): R19.7 - DIARRHEA, UNSPECIFIED Status: Acute Current Visit: Yes (5) Hyperkalemia SNOMED Code(s): 26433638 Code(s): E87.5 - HYPERKALEMIA Status: Acute Current Visit: Yes - Problem List Review Problem List Initiated/Reviewed/Updated: Yes - My Orders Last 24 Hours: My Active Orders 01/14/21 Dinner [place] [employer] Diet [DIET] 01/14/21 18:35 Blood Glucose Check, Bedside [RC] WITHMEALSANDBED Up ad Pauline [RC] ASDIRECTED Acetaminophen [TylenoL] 650 mg PO Q4H PRN Resuscitation Status Routine 01/14/21 18:36 Oxygen Therapy [RC] PRN VTE/DVT Education [RC] PER UNIT ROUTINE Vital Signs [RC] Q4H 01/14/21 18:38 Sequential Compression Device [OM.PC] Per Unit Routine 01/14/21 18:40 Antiembolic Devices [RC] PER UNIT ROUTINE 01/14/21 18:45 Sodium Chloride 0.9% [Normal Saline] 1,000 ml IV ASDIRECTED 01/14/21 18:48 Dextrose 50% in Water 50 ml IVPUSH ASDIRECTED PRN Glucagon,Human Recombinant [GlucaGen] 1 mg IM ASDIRECTED PRN 01/14/21 18:50 Baclofen [Lioresal] 20 mg PO TID PRN 01/15/21 07:30 Insulin Aspart [NovoLOG] See Protocol SUBCUT TIDAC 01/15/21 08:54 Acetaminophen/HYDROcodone [[place] 325-5 MG] 1 tab PO Q6H PRN 01/15/21 09:00 Patient's Own Medication [Ptom] 1 each PO DAILY - Plan Plan:: 70-year-old male with a history of CABG, DM and hypertension being admitted for ACS rule out, acute kidney injury, diarrhea and mildly elevated potassium. Pat ient is on normal saline at 125 mL/h. His potassium is down to 5.2. Troponins were negative. Continue avoiding nephrotoxic medications. Stool culture still pending. Continue diabetic diet and sliding scale for insulin. We will increase his [place] to every 6 hours as needed for back pain. Follow daily CBC, CMP. For patients peripheral vascular disease, he will need outpatient vascular surgery follow-up.
--- NOTE | 2021-01-15 12:32 | US ---
INDICATION: left leg pain, HX ARTIFICIAL "VEIN" PER PATIENT A FEW YRS AGO TECHNIQUE: Ultrasound venous duplex left lower extremity. COMPARISON: None. FINDINGS: The left common femoral, superficial femoral, deep femoral, popliteal, posterior tibial, and greater saphenous veins are fully compressible normal waveforms. IMPRESSION: Normal ultrasound of the left lower extremity veins. Dictated by: Pelon Santos MD @ 01/15/2021 12:31:45 (Electronically Signed)
--- NOTE | 2021-01-15 14:56 | US ---
HISTORY: Abdominal pain. History of pancreatitis. TECHNIQUE: Ultrasound of the right upper quadrant. COMPARISON: None. FINDINGS: Liver has normal echogenicity. No liver lesions. No intrahepatic bile duct dilation. Main portal vein is patent with flow directed toward the liver. No cholelithiasis, gallbladder wall thickening, or pericholecystic fluid. Common duct measures 2 mm in caliber, within normal limits. Visualized pancreas is unremarkable. Right kidney measures 12.4 cm long axis. Normal renal parenchymal thickness and echogenicity. 2.9 cm and 2.2 cm simple cyst in the upper pole the right kidney. IMPRESSION: 1. No cholelithiasis or bile duct dilation. 2. Simple cyst in the right kidney. Dictated by Mike Rincon MD @ 01/15/2021 2:54:[address] Mike Rincon @ Jan 15 2021 2:54PM
[2021-01-16] MEDS: Acetaminophen/HYDROcodone 325-5 MG Tab PO PRN ×2 (05:04→11:43)
[2021-01-16] MEDS: Insulin Aspart 100 Units/ML 3 ML Pen SUBCUT SCH (08:41)
[2021-01-16 09:10] LABS: CARBON DIOXIDE,CO2 18.1 mmol/L (21.0-32.0); POTASSIUM,K 5.4 mmol/L (3.5-5.1)
[2021-01-16] MEDS: Baclofen 10 MG Tab PO PRN (09:16)
[2021-01-16] MEDS: Insulin Glargine,Human Rec. Analog 100 Units/ML 3 ML Pen SUBCUT SCH (09:17)
[2021-01-16] MEDS: Prasugrel Hcl [Effient] 10 MG Tablet PO SCH (09:52)
--- NOTE | 2021-01-16 11:54 | PCM.DCSUM1 ---
<Olga Parker - Last Filed: 01/16/21 11:48> Discharge Summary - Hospital Course Free Text/Narrative:: 70-year-old male originally from [place] presented to the ED complaining of 2 weeks of diarrhea and abdominal cramping with 1 day of dizziness. Patient was in the outpatient lab getting blood work drawn when his potassium was found to be 5.6. He was seen in the ER where his lab work showed WBC 10, potassium 5.5, BUN 60, creatinine 2.0. In the ER the patient had one episode of nonradiating chest discomfort lasting 1 minute. Troponins were negative and EKG did not show signs of ischemia. Patient was admitted for ACS rule out, YENNY, diarrhea and hyperkalemia. He was given 1 bolus of normal saline in the ER. Patient was on maintenance fluids normal saline 125 mL/h. Patient did not have another episode of chest pain. His potassium was 5.2. His BUN and creatinine improved to 46 and 1.3 respectively. Patient had 1 bowel movement which was sent for cultures. Diarrhea resolved. Patient had an MRI on day of admission which showed protrusion of discs. He required Moodus every 6 as needed. He is being discharged with 5 tablets. He will follow up with PCP for further management of pain. He was advised to hold his Victoza and hydrochlorothiazide until he saw his PCP. Patient given prescription for BMP to be done on the morning of his PCP appointment 01/22/2021. Patient advised to avoid nephrotoxic medications including NSAIDs, hydrochlorothiazide, Victoza. - Discharge Data Discharge Date: 01/16/21 Discharge Disposition: Home, Self-Care 01 Condition: Good - Referral to Home Health Primary Care Physician: Tamera Hester, - Discharge Diagnosis/Problem(s) (1) Acute kidney injury SNOMED Code(s): 14991709, 02314659 ICD Code: N17.9 - ACUTE KIDNEY FAILURE, UNSPECIFIED Status: Acute Current Visit: Yes (2) Atypical chest pain SNOMED Code(s): 958355674 ICD Code: R07.89 - OTHER CHEST PAIN Status: Acute Current Visit: Yes (3) Dehydration SNOMED Code(s): 77573490 ICD Code: E86.0 - DEHYDRATION Status: Acute Current Visit: Yes (4) Diarrhea SNOMED Code(s): 75048337 ICD Code: R19.7 - DIARRHEA, UNSPECIFIED Status: Acute Current Visit: Yes (5) Hyperkalemia SNOMED Code(s): 45024734 ICD Code: E87.5 - HYPERKALEMIA Status: Acute Current Visit: Yes - Patient Instructions Diet: Heart Healthy Diet Diet, Other: Low potassium. Drink plenty of water. Activity: As Tolerated Other/Special Instructions: You were admitted for diarrhea that caused dehydration which eventually led to a kidney injury. Please avoid any medications that are toxic to your kidneys including ibuprofen or other NSAID medications. We are holding your home medications: Victoza and hydrochlorothiazide. Please speak to your PCP regarding restarting these medications. You do need to be on them for your diabetes and high blood pressure and your PCP will advise you on restarting these. Please make sure to monitor your blood pressure and blood glucose at home as we discussed. Please ensure you drink plenty of water. You are being given a prescription for a potassium level check to be done on the morning of 01/22/2021 before you see your PCP. Results will be sent to your PCP. Please seek medical attention if you experience chest pain, racing heartbeat, dizziness, lightheaded or loss of consciousness. - Discharge Plan *PRESCRIPTION DRUG MONITORING PROGRAM REVIEWED*: Yes *COPY OF PRESCRIPTION DRUG MONITORING REPORT IN PATIENT MANUEL: No Prescriptions/Med Rec: Hydrocodone/Acetaminophen [HYDROcodone-Acetaminophen 5-325 MG] 1 each PO BID PRN 3 Days #5 PRN Reason: Pain Home Medications: Home Meds Aspirin 81 mg PO DAILY 01/14/21 [History] Baclofen 20 mg PO TID PRN 01/14/21 [History] Benazepril [Lotensin] 20 mg PO DAILY 01/14/21 [History] Empagliflozin [Jardiance] 25 mg PO QAM 01/14/21 [History] Insulin Degludec [Tresiba] 100 unit SQ ACBREAKFAST 01/14/21 [History] Prasugrel HCl [Effient] 10 mg PO DAILY 01/14/21 [History] atorvaSTATin [Lipitor] 40 mg PO BEDTIME 01/14/21 [History] Hydrocodone/Acetaminophen [HYDROcodone-Acetaminophen 5-325 MG] 1 each PO BID PRN 3 Days #5 01/16/21 [Rx] Patient Handouts: Acute Kidney Injury, Adult, Acetaminophen; Hydrocodone tablets or capsules, Dehydration, Adult, [id number] Forms: ED Department Discharge Referrals: Tamera Hester DO [Primary Care Provider] - 01/22/21 10:45 am - Discharge Summary/Plan Comment DC Time >30 min.: Yes Total # of Minutes for Discharge Time: 31 - General Info Admission Dx/Problem (Free Text: Admission Diagnosis/Problem Admission Diagnosis/Problem Hyperkalemia - Review of Systems General: Reports: No Symptoms HEENT: Reports: No Symptoms Pulmonary: Reports: No Symptoms Cardiovascular: Reports: No Symptoms Gastrointestinal: Reports: No Symptoms Genitourinary: Reports: No Symptoms Musculoskeletal: Reports: No Symptoms Skin: Reports: No Symptoms Neurological: Reports: No Symptoms Psychiatric: Reports: No Symptoms - Patient Data Vitals - Most Recent: Last Vital Signs Temp 97.3 F 01/16/21 07:53 Pulse 73 01/16/21 07:53 Resp 16 01/16/21 07:53 BP 128/59 L 01/16/21 07:53 Pulse Ox 95 01/16/21 07:53 Weight - Most Recent: 82.463 kg I&O - Last 24 hours: Intake & Output 01/15/21 01/16/21 01/16/21 22:59 06:59 14:59 Intake Total 497 2000 Output Total 975 1100 Balance -478 900 Lab Results - Last 24 hrs: Laboratory Results - last 24 hr 01/15/21 01/16/21 01/16/21 Range/Units 16:29 06:21 08:27 WBC (4.0-11.0) K/uL RBC (4.50-5.90) M/uL Hgb (13.0-17.0) g/dL Hct (38.0-50.0) % MCV (80.0-98.0) fL MCH (27.0-32.0) pg MCHC (31.0-37.0) g/dL RDW Std Deviation (28.0-62.0) fl RDW Coeff of Kasey (11.0-15.0) % Plt Count (150-400) K/uL MPV (7.40-12.00) fL Neut % (Auto) (48.0-80.0) % Lymph % (Auto) (16.0-40.0) % Dubois % (Auto) (0.0-15.0) % Eos % (Auto) (0.0-7.0) % Baso % (Auto) (0.0-1.5) % Neut # (Auto) (1.4-5.7) K/uL Lymph # (Auto) (0.6-2.4) K/uL Dubois # (Auto) (0.0-0.8) K/uL Eos # (Auto) (0.0-0.7) K/uL Baso # (Auto) (0.0-0.1) K/uL Nucleated RBC % /100WBC Nucleated RBCs # K/uL Sodium 142 (136-148) mmol/L Potassium 5.4 H (3.5-5.1) mmol/L Chloride 111 H (98-107) mmol/L Carbon Dioxide 18.1 L (21.0-32.0) mmol/L BUN 46 H (7.0-18.0) mg/dL Creatinine 1.3 (0.8-1.3) mg/dL Est Cr Clr Drug Dosing 51.34 mL/min Estimated GFR (MDRD) 54.6 ml/min Glucose 151 H (74-106) mg/dL POC Glucose 138 H 83 (70-99) mg/dL Calcium 7.8 L (8.5-10.1) mg/dL Magnesium (1.8-2.4) mg/dL 01/16/21 01/16/21 01/16/21 Range/Units 08:27 08:27 09:10 WBC 6.77 (4.0-11.0) K/uL RBC 4.12 L (4.50-5.90) M/uL Hgb 12.5 L (13.0-17.0) g/dL Hct 36.4 L (38.0-50.0) % MCV 88.3 (80.0-98.0) fL MCH 30.3 (27.0-32.0) pg MCHC 34.3 (31.0-37.0) g/dL RDW Std Deviation 47.6 (28.0-62.0) fl RDW Coeff of Kasey 15 (11.0-15.0) % Plt Count 125 L (150-400) K/uL MPV 10.10 (7.40-12.00) fL Neut % (Auto) 61.1 (48.0-80.0) % Lymph % (Auto) 30.0 (16.0-40.0) % Dubois % (Auto) 4.3 (0.0-15.0) % Eos % (Auto) 4.3 (0.0-7.0) % Baso % (Auto) 0.3 (0.0-1.5) % Neut # (Auto) 4.1 (1.4-5.7) K/uL Lymph # (Auto) 2.0 (0.6-2.4) K/uL Dubois # (Auto) 0.3 (0.0-0.8) K/uL Eos # (Auto) 0.3 (0.0-0.7) K/uL Baso # (Auto) 0.0 (0.0-0.1) K/uL Nucleated RBC % 0.0 /100WBC Nucleated RBCs # 0 K/uL Sodium (136-148) mmol/L Potassium (3.5-5.1) mmol/L Chloride (98-107) mmol/L Carbon Dioxide (21.0-32.0) mmol/L BUN (7.0-18.0) mg/dL Creatinine (0.8-1.3) mg/dL Est Cr Clr Drug Dosing mL/min Estimated GFR (MDRD) ml/min Glucose (74-106) mg/dL POC Glucose 207 H (70-99) mg/dL Calcium (8.5-10.1) mg/dL Magnesium 2.1 (1.8-2.4) mg/dL 01/16/21 Range/Units 11:23 WBC (4.0-11.0) K/uL RBC (4.50-5.90) M/uL Hgb (13.0-17.0) g/dL Hct (38.0-50.0) % MCV (80.0-98.0) fL MCH (27.0-32.0) pg MCHC (31.0-37.0) g/dL RDW Std Deviation (28.0-62.0) fl RDW Coeff of Kasey (11.0-15.0) % Plt Count (150-400) K/uL MPV (7.40-12.00) fL Neut % (Auto) (48.0-80.0) % Lymph % (Auto) (16.0-40.0) % Dubois % (Auto) (0.0-15.0) % Eos % (Auto) (0.0-7.0) % Baso % (Auto) (0.0-1.5) % Neut # (Auto) (1.4-5.7) K/uL Lymph # (Auto) (0.6-2.4) K/uL Dubois # (Auto) (0.0-0.8) K/uL Eos # (Auto) (0.0-0.7) K/uL Baso # (Auto) (0.0-0.1) K/uL Nucleated RBC % /100WBC Nucleated RBCs # K/uL Sodium (136-148) mmol/L Potassium (3.5-5.1) mmol/L Chloride (98-107) mmol/L Carbon Dioxide (21.0-32.0) mmol/L BUN (7.0-18.0) mg/dL Creatinine (0.8-1.3) mg/dL Est Cr Clr Drug Dosing mL/min Estimated GFR (MDRD) ml/min Glucose (74-106) mg/dL POC Glucose 84 (70-99) mg/dL Calcium (8.5-10.1) mg/dL Magnesium (1.8-2.4) mg/dL Med Orders - Current: Current Medications Acetaminophen (Acetaminophen 325 Mg Tab) 650 mg PO Q4H PRN PRN Reason: Pain (Mild 1-3)/fever Last Admin: 01/15/21 02:27 Dose: 650 mg Documented by: Hydrocodone Bitart/Acetaminophen (Acetaminophen/Hydrocodone 325-5 Mg Tab) 1 tab PO Q6H PRN PRN Reason: Pain Last Admin: 01/16/21 11:43 Dose: 1 tab Documented by: Baclofen (Baclofen 10 Mg Tab) 20 mg PO TID PRN PRN Reason: muscle spasms Last Admin: 01/16/21 09:16 Dose: 20 mg Documented by: Dextrose/Water (50% Dextrose In Water 50 Ml Syringe) 50 ml IVPUSH ASDIRECTED PRN PRN Reason: Hypoglycemia Glucagon (Glucagon,Human Recombinant 1 Mg Vial) 1 mg IM ASDIRECTED PRN PRN Reason: Hypoglycemia Insulin Aspart (Insulin Aspart 100 Units/Ml 3 Ml Pen) 0 unit SUBCUT TIDAC [facility]; Protocol Last Admin: 01/16/21 08:41 Dose: Not Given Documented by: Insulin Glargine (Insulin Glargine,Human Rec. Analog 100 Units/Ml 3 Ml Pen) 80 units SUBCUT DAILY [facility] Last Admin: 01/16/21 09:17 Dose: 80 units Documented by: Prasugrel Hcl [ Effient] 10 Mg Tablet 1 each PO DAILY [facility] Last Admin: 01/16/21 09:52 Dose: Not Given Documented by: Sodium Chloride (Sodium Chloride 0.9% 10 Ml Syringe) 10 ml FLUSH ASDIRECTED PRN PRN Reason: Keep Vein Open Last Admin: 01/14/21 15:39 Dose: 10 ml Documented by: Sodium Chloride (Sodium Chloride 0.9% 2.5 Ml Syringe) 2.5 ml FLUSH ASDIRECTED PRN PRN Reason: Keep Vein Open Last Admin: 01/14/21 15:38 Dose: 2.5 ml Documented by: Discontinued Medications Hydrocodone Bitart/Acetaminophen (Acetaminophen/Hydrocodone 325-10 Mg Tab) 1 tab PO ONETIME ONE Stop: 01/14/21 17:28 Last Admin: 01/14/21 17:58 Dose: 1 tab Documented by: Hydrocodone Bitart/Acetaminophen (Acetaminophen/Hydrocodone 325-5 Mg Tab) 1 tab PO BID PRN PRN Reason: Pain Last Admin: 01/14/21 21:22 Dose: 1 tab Documented by: Cyclobenzaprine HCl (Cyclobenzaprine 10 Mg Tab) 10 mg PO ONETIME ONE Stop: 01/14/21 17:30 Last Admin: 01/14/21 17:58 Dose: 10 mg Documented by: Dicyclomine HCl (Dicyclomine 10 Mg Cap) 10 mg PO ONETIME ONE Stop: 01/14/21 15:42 Last Admin: 01/14/21 16:04 Dose: 10 mg Documented by: Sodium Chloride (Normal Saline) 1,000 mls @ 1,000 mls/hr IV .Bolus ONE Stop: 01/14/21 16:13 Last Admin: 01/14/21 15:38 Dose: 1,000 mls/hr Documented by: Sodium Chloride (Normal Saline) 1,000 mls @ 125 mls/hr IV ASDIRECTED STANISLAW Last Admin: 01/15/21 14:37 Dose: 125 mls/hr Documented by: Non-Formulary Medication (Insulin Degludec [Tresiba]) 100 unit SQ ACBREAKFAST STANISLAW Insulin Degludec [ (Tresiba] 80 Unit) 1 each SUBCUT ACBREAKFAST STANISLAW Last Admin: 01/15/21 07:54 Dose: Not Given Documented by: - Exam General: Reports: Alert, Oriented HEENT: Denies: Scleral Icterus Neck: Reports: Supple. Denies: JVD Lungs: Reports: Clear to Auscultation Cardiovascular: Reports: Regular Rate, Regular Rhythm GI/Abdominal Exam: Normal Bowel Sounds, Soft, Non-Tender, No Distention. No: Guarding, Rigid, Rebound Back Exam: Reports: Decreased Range of Motion, Muscle Spasm, Paraspinal Tenderness Extremities: Non-Tender, No Pedal Edema. No: Curtis's Sign, Leg Pain Skin: Reports: Warm, Dry, Intact Neurological: Reports: No New Focal Deficit <Crow Carrera - Last Filed: 01/16/21 14:02> Discharge Summary - Referral to Home Health Primary Care Physician: Tamera Hester DO - Patient Data Vitals - Most Recent: Last Vital Signs Temp 36.1 C 01/16/21 11:00 Pulse 73 01/16/21 11:00 Resp 16 01/16/21 11:00 BP 118/79 01/16/21 11:00 Pulse Ox 95 01/16/21 11:00 I&O - Last 24 hours: Intake & Output 01/15/21 01/16/21 01/16/21 22:59 06:59 14:59 Intake Total 497 2000 Output Total 975 1100 Balance -478 900 Lab Results - Last 24 hrs: Laboratory Results - last 24 hr 01/15/21 01/16/21 01/16/21 Range/Units 16:29 06:21 08:27 WBC (4.0-11.0) K/uL RBC (4.50-5.90) M/uL Hgb (13.0-17.0) g/dL Hct (38.0-50.0) % MCV (80.0-98.0) fL MCH (27.0-32.0) pg MCHC (31.0-37.0) g/dL RDW Std Deviation (28.0-62.0) fl RDW Coeff of Kasey (11.0-15.0) % Plt Count (150-400) K/uL MPV (7.40-12.00) fL Neut % (Auto) (48.0-80.0) % Lymph % (Auto) (16.0-40.0) % Dubois % (Auto) (0.0-15.0) % Eos % (Auto) (0.0-7.0) % Baso % (Auto) (0.0-1.5) % Neut # (Auto) (1.4-5.7) K/uL Lymph # (Auto) (0.6-2.4) K/uL Dubois # (Auto) (0.0-0.8) K/uL Eos # (Auto) (0.0-0.7) K/uL Baso # (Auto) (0.0-0.1) K/uL Nucleated RBC % /100WBC Nucleated RBCs # K/uL Sodium 142 (136-148) mmol/L Potassium 5.4 H (3.5-5.1) mmol/L Chloride 111 H (98-107) mmol/L Carbon Dioxide 18.1 L (21.0-32.0) mmol/L BUN 46 H (7.0-18.0) mg/dL Creatinine 1.3 (0.8-1.3) mg/dL Est Cr Clr Drug Dosing 51.34 mL/min Estimated GFR (MDRD) 54.6 ml/min Glucose 151 H (74-106) mg/dL POC Glucose 138 H 83 (70-99) mg/dL Calcium 7.8 L (8.5-10.1) mg/dL Magnesium (1.8-2.4) mg/dL 01/16/21 01/16/21 01/16/21 Range/Units 08:27 08:27 09:10 WBC 6.77 (4.0-11.0) K/uL RBC 4.12 L (4.50-5.90) M/uL Hgb 12.5 L (13.0-17.0) g/dL Hct 36.4 L (38.0-50.0) % MCV 88.3 (80.0-98.0) fL MCH 30.3 (27.0-32.0) pg MCHC 34.3 (31.0-37.0) g/dL RDW Std Deviation 47.6 (28.0-62.0) fl RDW Coeff of Kasey 15 (11.0-15.0) % Plt Count 125 L (150-400) K/uL MPV 10.10 (7.40-12.00) fL Neut % (Auto) 61.1 (48.0-80.0) % Lymph % (Auto) 30.0 (16.0-40.0) % Dubois % (Auto) 4.3 (0.0-15.0) % Eos % (Auto) 4.3 (0.0-7.0) % Baso % (Auto) 0.3 (0.0-1.5) % Neut # (Auto) 4.1 (1.4-5.7) K/uL Lymph # (Auto) 2.0 (0.6-2.4) K/uL Dubois # (Auto) 0.3 (0.0-0.8) K/uL Eos # (Auto) 0.3 (0.0-0.7) K/uL Baso # (Auto) 0.0 (0.0-0.1) K/uL Nucleated RBC % 0.0 /100WBC Nucleated RBCs # 0 K/uL Sodium (136-148) mmol/L Potassium (3.5-5.1) mmol/L Chloride (98-107) mmol/L Carbon Dioxide (21.0-32.0) mmol/L BUN (7.0-18.0) mg/dL Creatinine (0.8-1.3) mg/dL Est Cr Clr Drug Dosing mL/min Estimated GFR (MDRD) ml/min Glucose (74-106) mg/dL POC Glucose 207 H (70-99) mg/dL Calcium (8.5-10.1) mg/dL Magnesium 2.1 (1.8-2.4) mg/dL 01/16/21 Range/Units 11:23 WBC (4.0-11.0) K/uL RBC (4.50-5.90) M/uL Hgb (13.0-17.0) g/dL Hct (38.0-50.0) % MCV (80.0-98.0) fL MCH (27.0-32.0) pg MCHC (31.0-37.0) g/dL RDW Std Deviation (28.0-62.0) fl RDW Coeff of Kasey (11.0-15.0) % Plt Count (150-400) K/uL MPV (7.40-12.00) fL Neut % (Auto) (48.0-80.0) % Lymph % (Auto) (16.0-40.0) % Dubois % (Auto) (0.0-15.0) % Eos % (Auto) (0.0-7.0) % Baso % (Auto) (0.0-1.5) % Neut # (Auto) (1.4-5.7) K/uL Lymph # (Auto) (0.6-2.4) K/uL Dubois # (Auto) (0.0-0.8) K/uL Eos # (Auto) (0.0-0.7) K/uL Baso # (Auto) (0.0-0.1) K/uL Nucleated RBC % /100WBC Nucleated RBCs # K/uL Sodium (136-148) mmol/L Potassium (3.5-5.1) mmol/L Chloride (98-107) mmol/L Carbon Dioxide (21.0-32.0) mmol/L BUN (7.0-18.0) mg/dL Creatinine (0.8-1.3) mg/dL Est Cr Clr Drug Dosing mL/min Estimated GFR (MDRD) ml/min Glucose (74-106) mg/dL POC Glucose 84 (70-99) mg/dL Calcium (8.5-10.1) mg/dL Magnesium (1.8-2.4) mg/dL Med Orders - Current: Current Medications Acetaminophen (Acetaminophen 325 Mg Tab) 650 mg PO Q4H PRN PRN Reason: Pain (Mild 1-3)/fever Last Admin: 01/15/21 02:27 Dose: 650 mg Documented by: Hydrocodone Bitart/Acetaminophen (Acetaminophen/Hydrocodone 325-5 Mg Tab) 1 tab PO Q6H PRN PRN Reason: Pain Last Admin: 01/16/21 11:43 Dose: 1 tab Documented by: Baclofen (Baclofen 10 Mg Tab) 20 mg PO TID PRN PRN Reason: muscle spasms Last Admin: 01/16/21 09:16 Dose: 20 mg Documented by: Dextrose/Water (50% Dextrose In Water 50 Ml Syringe) 50 ml IVPUSH ASDIRECTED PRN PRN Reason: Hypoglycemia Glucagon (Glucagon,Human Recombinant 1 Mg Vial) 1 mg IM ASDIRECTED PRN PRN Reason: Hypoglycemia Insulin Aspart (Insulin Aspart 100 Units/Ml 3 Ml Pen) 0 unit SUBCUT TIDAC [facility]; Protocol Last Admin: 01/16/21 08:41 Dose: Not Given Documented by: Insulin Glargine (Insulin Glargine,Human Rec. Analog 100 Units/Ml 3 Ml Pen) 80 units SUBCUT DAILY [facility] Last Admin: 01/16/21 09:17 Dose: 80 units Documented by: Prasugrel Hcl [ Effient] 10 Mg Tablet 1 each PO DAILY [facility] Last Admin: 01/16/21 09:52 Dose: Not Given Documented by: Sodium Chloride (Sodium Chloride 0.9% 10 Ml Syringe) 10 ml FLUSH ASDIRECTED PRN PRN Reason: Keep Vein Open Last Admin: 01/14/21 15:39 Dose: 10 ml Documented by: Sodium Chloride (Sodium Chloride 0.9% 2.5 Ml Syringe) 2.5 ml FLUSH ASDIRECTED PRN PRN Reason: Keep Vein Open Last Admin: 01/14/21 15:38 Dose: 2.5 ml Documented by: Discontinued Medications Hydrocodone Bitart/Acetaminophen (Acetaminophen/Hydrocodone 325-10 Mg Tab) 1 tab PO ONETIME ONE Stop: 01/14/21 17:28 Last Admin: 01/14/21 17:58 Dose: 1 tab Documented by: Hydrocodone Bitart/Acetaminophen (Acetaminophen/Hydrocodone 325-5 Mg Tab) 1 tab PO BID PRN PRN Reason: Pain Last Admin: 01/14/21 21:22 Dose: 1 tab Documented by: Cyclobenzaprine HCl (Cyclobenzaprine 10 Mg Tab) 10 mg PO ONETIME ONE Stop: 01/14/21 17:30 Last Admin: 01/14/21 17:58 Dose: 10 mg Documented by: Dicyclomine HCl (Dicyclomine 10 Mg Cap) 10 mg PO ONETIME ONE Stop: 01/14/21 15:42 Last Admin: 01/14/21 16:04 Dose: 10 mg Documented by: Sodium Chloride (Normal Saline) 1,000 mls @ 1,000 mls/hr IV .Bolus ONE Stop: 01/14/21 16:13 Last Admin: 01/14/21 15:38 Dose: 1,000 mls/hr Documented by: Sodium Chloride (Normal Saline) 1,000 mls @ 125 mls/hr IV ASDIRECTED STANISLAW Last Admin: 01/15/21 14:37 Dose: 125 mls/hr Documented by: Non-Formulary Medication (Insulin Degludec [Tresiba]) 100 unit SQ ACBREAKFAST ST[place]ISLAW Insulin Degludec [ (Tresiba] 80 Unit) 1 each SUBCUT ACBREAKFAST ST[facility]ISLAW Last Admin: 01/15/21 07:54 Dose: Not Given Documented by: - Free Text/Narrative Note: I have seen and examined the patient. I have discussed findings and treatment plan with the resident. I agree with the assessment and plan as outlined in the following note.
== END 2021-01-16 12:40 | disposition home or self-care (01) ==
LOC: MW.ED 14:42 → MW.MS 17:30
PROVIDERS: ADMIT Internal Medicine; ATTEND Internal Medicine
DX: R19.7 Diarrhea, unspecified (principal); N17.9 Acute kidney failure, unspecified; R07.89 Other chest pain; E86.0 Dehydration; E87.5 Hyperkalemia; Z79.82 Long term (current) use of aspirin; Z79.899 Other long term (current) drug therapy; Z20.822 Contact with and (suspected) exposure to COVID-19
CPT/HCPCS: 36415; 71045; 76705; 80048; 80053; 82947; 83735; 84484; 85025; 87045; 87046; 87449; 87899; 93005; 93971; 99285; A9270; G0378; J1815; J7030; U0002; 83690; 85027

== ENCOUNTER 2022-04-03 10:46 | Emergency (ER) | payer MEDICARE, MEDICAID ==
[2022-04-03] MEDS ORDERED: Sodium Chloride 0.9% 2.5 ML Syringe FLUSH PRN (10:53)
[2022-04-03] MEDS ORDERED: Sodium Chloride 0.9% 10 ML Syringe FLUSH PRN (10:53)
[2022-04-03] MEDS ORDERED: Ondansetron 4 MG/2 ML SDV IVPUSH ONE (11:36)
[2022-04-03] MEDS ORDERED: Morphine 4 MG/ML Syringe IVPUSH ONE ×3 (11:36→16:20)
[2022-04-03 11:58] LABS: CARBON DIOXIDE,CO2 20.5 mmol/L (21.0-32.0); POTASSIUM,K 4.8 mmol/L (3.5-5.1)
[2022-04-03] MEDS ORDERED: Aspirin 81 MG Tab.Chew PO ONE (12:18)
[2022-04-03] MEDS ORDERED: Heparin Sodium/0.45% NaCl 500 ML IV SCH (12:45)
[2022-04-03] MEDS: Nitroglycerin 0.4 MG Tab.SL SL PRN ×3 (12:49→13:57)
[2022-04-03 13:21] LABS: CORONAVIRUS COVID-19 NAA NEGATIVE (NEGATIVE); INFLUENZA A NAA NEGATIVE (NEGATIVE); INFLUENZA B NAA NEGATIVE (NEGATIVE); RESPIRATORY SYNCYTIAL VIR NAA NEGATIVE (NEGATIVE)
== END 2022-04-03 18:40 ==
LOC: MW.ED 10:46
DX: I21.4 Non-ST elevation (NSTEMI) myocardial infarction (principal); Z95.1 Presence of aortocoronary bypass graft; Z79.82 Long term (current) use of aspirin; Z20.822 Contact with and (suspected) exposure to COVID-19
CPT/HCPCS: 0241U; 36415; 71045; 80053; 82947; 84484; 85025; 85730; 93005; 96365; 96366; 96375; 96376; 99285; A9270; J1644; J2270; J2405; J3490

== ENCOUNTER 2022-07-10 04:51 | Emergency (ER) | payer MEDICARE, MEDICAID ==
[2022-07-10] MEDS ORDERED: Sodium Chloride 0.9% 2.5 ML Syringe FLUSH PRN (05:11)
[2022-07-10] MEDS ORDERED: Sodium Chloride 0.9% 10 ML Syringe FLUSH PRN (05:11)
[2022-07-10] MEDS: Nitroglycerin 0.4 MG Tab.SL SL PRN ×2 (05:18→05:33)
[2022-07-10 05:36] LABS: CARBON DIOXIDE,CO2 16.8 mmol/L (21.0-32.0); POTASSIUM,K 4.6 mmol/L (3.5-5.1)
[2022-07-10] MEDS ORDERED: Morphine 4 MG/ML Syringe IVPUSH ONE ×2 (05:53→07:10)
[2022-07-10] MEDS ORDERED: Ondansetron 4 MG/2 ML SDV IVPUSH ONE (05:53)
[2022-07-10] MEDS ORDERED: Heparin Sodium/0.45% NaCl 500 ML IV SCH (06:00)
[2022-07-10 06:03] LABS: CORONAVIRUS COVID-19 NAA NEGATIVE (NEGATIVE); INFLUENZA A NAA NEGATIVE (NEGATIVE); INFLUENZA B NAA NEGATIVE (NEGATIVE); RESPIRATORY SYNCYTIAL VIR NAA NEGATIVE (NEGATIVE)
[2022-07-10] MEDS ORDERED: Heparin Sodium 5,000 Units/ML Vial IVPUSH ONE (06:05)
== END 2022-07-10 08:55 ==
LOC: MW.ED 04:51
DX: I21.4 Non-ST elevation (NSTEMI) myocardial infarction (principal); Z79.82 Long term (current) use of aspirin; Z79.4 Long term (current) use of insulin; Z79.899 Other long term (current) drug therapy; Z95.1 Presence of aortocoronary bypass graft; Z20.822 Contact with and (suspected) exposure to COVID-19
CPT/HCPCS: 0241U; 36415; 71045; 80053; 84484; 85025; 85730; 93005; 96365; 96366; 96375; 96376; 99285; A9270; J1644; J2270; J2405; J3490; 93010

== ENCOUNTER 2022-09-23 17:34 | Inpatient (IN) | payer MEDICARE, MEDICAID ==
[2022-09-23 19:14] LABS: CARBON DIOXIDE,CO2 18.5 mmol/L (21.0-32.0); POTASSIUM,K 6.8 mmol/L (3.5-5.1)
[2022-09-23] MEDS ORDERED: Furosemide 40 MG/4 ML VIAL IVPUSH ONE (19:34)
[2022-09-23] MEDS ORDERED: Calcium Gluconate 10% 1 GM/10 ML SDV IVPUSH ONE (19:37)
[2022-09-23] MEDS ORDERED: Sodium Polystyrene Sulfonate 15 GM/60 ML Susp 60 ML Bot PO ONE (19:37)
[2022-09-23] MEDS ORDERED: Insulin Regular in 0.9 % NACL 100 ML IV SCH (20:15)
[2022-09-23] MEDS ORDERED: Sodium Chloride 23.4% 154 MEQ in Dextrose 10% in Water 1,000 ML IV SCH ×2 (20:15)
[2022-09-23] MEDS ORDERED: Dextrose 10% in Water 500 ML IV SCH (20:30)
[2022-09-23] MEDS ORDERED: Insulin Regular in 0.9 % NACL 100 ML ONE (20:58)
[2022-09-23] MEDS ORDERED: Acetaminophen/HYDROcodone 325-5 MG Tab ONE (21:29)
[2022-09-23] MEDS ORDERED: 50% Dextrose in Water 50 ML Syringe ONE (21:33)
[2022-09-23] MEDS ORDERED: Acetaminophen/HYDROcodone 325-5 MG Tab PO ONE (21:34)
[2022-09-23] MEDS ORDERED: 50% Dextrose in Water 50 ML Syringe IVPUSH ONE (21:35)
[2022-09-24] MEDS ORDERED: Sodium Chloride 0.9% 1,000 ML IV SCH ×3 (01:00→10:15)
[2022-09-24] MEDS: Sodium Chloride 0.9% 1,000 ML IV SCH ×2 (02:02→10:27)
[2022-09-24] MEDS ORDERED: Acetaminophen/HYDROcodone 325-5 MG Tab PO PRN ×2 (04:16→10:45)
[2022-09-24 04:25] LABS: CARBON DIOXIDE,CO2 20.5 mmol/L (21.0-32.0); POTASSIUM,K 5.7 mmol/L (3.5-5.1)
[2022-09-24] MEDS: Baclofen 10 MG Tab PO PRN ×2 (08:59→20:19)
[2022-09-24] MEDS: Clopidogrel 75 MG Tab PO SCH (11:20)
[2022-09-24] MEDS: Isosorbide Mononitrate 30 MG Tab.ER PO SCH (11:21)
[2022-09-24] MEDS: amLODIPine 5 MG Tab PO SCH (11:22)
[2022-09-24] MEDS: Metoprolol Tartrate 25 MG Tab PO SCH ×2 (11:23→20:20)
[2022-09-24] MEDS: Pantoprazole 40 MG Tab.CR PO SCH (11:24)
[2022-09-24 11:34] LABS: CARBON DIOXIDE,CO2 17.6 mmol/L (21.0-32.0); POTASSIUM,K 5.4 mmol/L (3.5-5.1)
[2022-09-24] MEDS: Acetaminophen/HYDROcodone 325-5 MG Tab PO PRN ×2 (11:37→20:21)
[2022-09-24 17:44] LABS: CARBON DIOXIDE,CO2 21.9 mmol/L (21.0-32.0); POTASSIUM,K 5.6 mmol/L (3.5-5.1)
[2022-09-24] MEDS: atorvaSTATin 40 MG Tab PO SCH ×2 (20:19→20:20)
[2022-09-24 23:22] LABS: CARBON DIOXIDE,CO2 20.4 mmol/L (21.0-32.0); POTASSIUM,K 5.4 mmol/L (3.5-5.1)
[2022-09-25] MEDS: Baclofen 10 MG Tab PO PRN ×2 (07:42→23:34)
[2022-09-25] MEDS: Acetaminophen/HYDROcodone 325-5 MG Tab PO PRN ×2 (07:43→16:14)
[2022-09-25 08:49] LABS: CARBON DIOXIDE,CO2 24.3 mmol/L (21.0-32.0); POTASSIUM,K 5.3 mmol/L (3.5-5.1)
[2022-09-25] MEDS: amLODIPine 5 MG Tab PO SCH (09:26)
[2022-09-25] MEDS: Metoprolol Tartrate 25 MG Tab PO SCH ×2 (09:30→20:28)
[2022-09-25] MEDS: Isosorbide Mononitrate 30 MG Tab.ER PO SCH (09:31)
[2022-09-25] MEDS: Clopidogrel 75 MG Tab PO SCH (09:32)
[2022-09-25] MEDS: Pantoprazole 40 MG Tab.CR PO SCH (09:33)
[2022-09-25] MEDS: Insulin Glargine,Hum.Rec.Anlog 100 UNIT/ML 3 ML Pen SUBCUT SCH (09:35)
[2022-09-25] MEDS ORDERED: Albuterol/Ipratropium 3.0-0.5 MG/3 ML Neb Soln NEB PRN (10:31)
[2022-09-25] MEDS ORDERED: Furosemide 40 MG/4 ML VIAL IVPUSH ONE (10:53)
[2022-09-25] MEDS ORDERED: Glucagon,Human Recombinant 1 MG Vial IM PRN (11:37)
[2022-09-25] MEDS ORDERED: 50% Dextrose in Water 50 ML Syringe IVPUSH PRN (11:37)
[2022-09-25] MEDS: Insulin Aspart 100 Units/ML 3 ML Pen SUBCUT SCH ×2 (11:55→16:44)
[2022-09-25 17:56] LABS: CARBON DIOXIDE,CO2 27.2 mmol/L (21.0-32.0); POTASSIUM,K 5.5 mmol/L (3.5-5.1)
[2022-09-25] MEDS: Dextrose 5%-0.45% NaCl 1,000 ML IV SCH (18:36)
[2022-09-25] MEDS ORDERED: Morphine 2 MG/ML SYRINGE IVPUSH ONE (19:11)
[2022-09-25] MEDS ORDERED: Metoprolol Tartrate 25 MG Tab PO ONE (19:55)
[2022-09-25] MEDS ORDERED: Aspirin 325 MG Tab.EC ONE (20:22)
[2022-09-25] MEDS ORDERED: Aspirin 325 MG Tab PO ONE (20:24)
[2022-09-25] MEDS: atorvaSTATin 40 MG Tab PO SCH (20:27)
[2022-09-25] MEDS ORDERED: Hydrochlorothiazide 25 MG Tab PO ONE (20:39)
[2022-09-26] MEDS: Acetaminophen/HYDROcodone 325-5 MG Tab PO PRN ×2 (04:37→12:36)
[2022-09-26] MEDS: Dextrose 5%-0.45% NaCl 1,000 ML IV SCH ×2 (04:38→15:29)
[2022-09-26 06:27] LABS: CARBON DIOXIDE,CO2 24.1 mmol/L (21.0-32.0)
[2022-09-26 06:29] LABS: POTASSIUM,K 5.4 mmol/L (3.5-5.1)
[2022-09-26] MEDS: Insulin Aspart 100 Units/ML 3 ML Pen SUBCUT SCH ×3 (07:51→17:38)
[2022-09-26] MEDS: amLODIPine 5 MG Tab PO SCH (08:57)
[2022-09-26] MEDS: Clopidogrel 75 MG Tab PO SCH (08:57)
[2022-09-26] MEDS: Metoprolol Tartrate 25 MG Tab PO SCH ×2 (08:57→21:10)
[2022-09-26] MEDS: Isosorbide Mononitrate 30 MG Tab.ER PO SCH (08:57)
[2022-09-26] MEDS: Pantoprazole 40 MG Tab.CR PO SCH (08:57)
[2022-09-26] MEDS: Insulin Glargine,Hum.Rec.Anlog 100 UNIT/ML 3 ML Pen SUBCUT SCH (08:59)
[2022-09-26] MEDS: oxyCODONE 5 MG Tab PO PRN ×2 (15:28→21:10)
[2022-09-26] MEDS: atorvaSTATin 40 MG Tab PO SCH (21:09)
[2022-09-27] MEDS: Dextrose 5%-0.45% NaCl 1,000 ML IV SCH (01:29)
[2022-09-27] MEDS: oxyCODONE 5 MG Tab PO PRN ×2 (06:26→12:19)
[2022-09-27 06:55] LABS: POTASSIUM,K 4.6 mmol/L (3.5-5.1)
[2022-09-27] MEDS: Insulin Aspart 100 Units/ML 3 ML Pen SUBCUT SCH ×2 (07:12→11:32)
[2022-09-27] MEDS: amLODIPine 5 MG Tab PO SCH (08:29)
[2022-09-27] MEDS: Pantoprazole 40 MG Tab.CR PO SCH (08:29)
[2022-09-27] MEDS: Isosorbide Mononitrate 30 MG Tab.ER PO SCH (08:29)
[2022-09-27] MEDS: Clopidogrel 75 MG Tab PO SCH (08:30)
[2022-09-27] MEDS: Metoprolol Tartrate 25 MG Tab PO SCH (08:30)
[2022-09-27] MEDS ORDERED: Aspirin 81 MG Tab.EC PO SCH (09:00)
[2022-09-27] MEDS: Insulin Glargine,Hum.Rec.Anlog 100 UNIT/ML 3 ML Pen SUBCUT SCH (09:01)
[2022-09-27] MEDS ORDERED: Hydrochlorothiazide 25 MG Tab PO ONE (13:51)
== END 2022-09-27 15:00 | disposition home or self-care (01) | DRG 641 ==
LOC: MW.ED 17:34 → OBSVTOIN 09-24 00:24 → MW.MS 09-24 00:24 → UNDOADMOB 09-24 00:24 → MW.MS 09-24 13:17
PROVIDERS: ADMIT Internal Medicine; ATTEND Internal Medicine
DX: E87.5 Hyperkalemia (principal); N17.9 Acute kidney failure, unspecified; E87.20 Acidosis, unspecified; I25.10 Atherosclerotic heart disease of native coronary artery without angina pectoris; E11.22 Type 2 diabetes mellitus with diabetic chronic kidney disease; N18.30 Chronic kidney disease, stage 3 unspecified; R07.9 Chest pain, unspecified; I12.9 Hypertensive chronic kidney disease with stage 1 through stage 4 chronic kidney disease, or unspecified chronic kidney disease; E87.70 Fluid overload, unspecified; Z79.82 Long term (current) use of aspirin; Z79.4 Long term (current) use of insulin; Z79.899 Other long term (current) drug therapy
CPT/HCPCS: 36415; 71045; 71045-26; 80048; 80053; 82550; 82947; 83735; 84100; 84132; 84484; 85025; 87045; 87046; 87449; 87899; 93005; 96374; 96375; 99285; 99285-25; A9270-GY; J0612; J1815; J1815-GY; J1940; J2270; J3490; J7030; J7042

== ENCOUNTER 2024-04-24 08:16 | Day surgery (SDC) | payer MEDICARE, MEDICAID ==
[2024-04-24] MEDS ORDERED: propofoL 500 MG/50 ML 50 ML ONE (08:27)
[2024-04-24] MEDS ORDERED: Lidocaine 2% 5 ML SDV ONE (08:27)
[2024-04-24] MEDS: Lactated Ringers 1,000 ML IV SCH (09:11)
[2024-04-24] MEDS ORDERED: Lactated Ringers 1,000 ML IV SCH (10:15)
== END 2024-04-24 10:44 | disposition home or self-care (01) ==
LOC: MW.SDS 08:16
PROVIDERS: ATTEND Surgery
DX: Z12.11 Encounter for screening for malignant neoplasm of colon (principal); K63.5 Polyp of colon; Z86.0100 Personal history of colon polyps, unspecified; I10 Essential (primary) hypertension; E11.21 Type 2 diabetes mellitus with diabetic nephropathy; E78.2 Mixed hyperlipidemia; I25.10 Atherosclerotic heart disease of native coronary artery without angina pectoris; Z87.891 Personal history of nicotine dependence; Z96.659 Presence of unspecified artificial knee joint; Z95.1 Presence of aortocoronary bypass graft; Z79.84 Long term (current) use of oral hypoglycemic drugs; Z79.899 Other long term (current) drug therapy
CPT/HCPCS: 45380; J2704; J7120; J3490

== ENCOUNTER 2024-06-02 15:46 | Emergency (ER) | payer MEDICARE, MEDICAID ==
[2024-06-02 16:06] LABS: BASOPHILS ABSOLUTE AUTO 0.04 K/uL (0.00-0.20); BASOPHILS PERCENT AUTO 0.4 % (0.0-1.0); EOSINOPHILS ABSOLUTE AUTO 0.21 K/uL (0.00-0.45); EOSINOPHILS PERCENT AUTO 2.3 % (0.0-6.0); HEMOGLOBIN 12.6 g/dL (14.0-18.0); IMMATURE GRAN ABSOLUTE AUTO 0.02 K/uL (0.00-0.05); IMMATURE GRAN PERCENT AUTO 0.2 % (0.0-0.4); LYMPHOCYTES ABSOLUTE AUTO 2.23 K/uL (1.00-4.80); LYMPHOCYTES PERCENT AUTO 24.2 % (24.0-44.0); MEAN CORPUSCULAR HEMOGLOBIN 30.7 pg (28.0-32.0); MEAN CORPUSCULAR HGB CONC 34.1 g/dL (32.0-36.0); MEAN CORPUSCULAR VOLUME 90.2 fL (83.0-99.0); MEAN PLATELET VOLUME 10.6 fL (9.4-12.4); MONOCYTES ABSOLUTE AUTO 0.43 K/uL (0.00-0.80); MONOCYTES PERCENT AUTO 4.7 % (0.0-8.0); NEUTROPHILS ABSOLUTE AUTO 6.27 K/uL (1.80-7.70); NEUTROPHILS PERCENT AUTO 68.2 % (41.0-71.0); PLATELET COUNT,PLT 134 K/uL (150-400)
[2024-06-02] MEDS: Morphine 4 MG/ML Syringe IVPUSH ONE (16:16)
[2024-06-02] MEDS: Sodium Chloride 0.9% 2.5 ML Syringe FLUSH PRN (16:16)
[2024-06-02] MEDS: Sodium Chloride 0.9% 10 ML Syringe FLUSH PRN (16:16)
[2024-06-02 16:37] LABS: A/G RATIO 0.8 (0.9-1.6); ALBUMIN 3.3 g/dL (3.4-5.0); BILIRUBIN TOTAL 0.5 mg/dL (0.2-1.0); CALCIUM 8.7 mg/dL (8.5-10.1); CARBON DIOXIDE,CO2 24.1 mmol/L (21.0-32.0); CREATININE 1.9 mg/dL (0.8-1.3); MAGNESIUM 1.9 mg/dL (1.8-2.4); POTASSIUM,K 5.7 mmol/L (3.5-5.1); PROTEIN TOTAL,TP 7.3 g/dL (6.4-8.2); TSH ULTRASENSITIVE 2.51 uIU/mL (0.36-3.74)
[2024-06-02] MEDS ORDERED: Sodium Chloride 0.9% 1,000 ML IV ONE (17:11)
[2024-06-02] MEDS: Furosemide 40 MG/4 ML VIAL IVPUSH ONE (17:22)
[2024-06-02] MEDS: Lactated Ringers 1,000 ML IV STA (17:23)
[2024-06-02] MEDS: Iopamidol 755 Mg/ML 100 ML Bottle IVPUSH ONE (17:33)
[2024-06-02 18:45] LABS: POTASSIUM,K 5.4 mmol/L (3.5-5.1)
[2024-06-02 18:53] LABS: CALCIUM 8.5 mg/dL (8.5-10.1); CARBON DIOXIDE,CO2 25.3 mmol/L (21.0-32.0); CREATININE 1.8 mg/dL (0.8-1.3); EST CRCL DRUG DOSING (CG) 34.83 mL/min
[2024-06-02] MEDS ORDERED: Sennosides/Docusate Sodium 50-8.6 MG Tab PO SCH (19:26)
[2024-06-02] MEDS ORDERED: Albuterol/Ipratropium 3.0-0.5 MG/3 ML Neb Soln NEB PRN (19:26)
[2024-06-02] MEDS ORDERED: Ondansetron 4 MG/2 ML SDV IVPUSH PRN (19:26)
[2024-06-02] MEDS ORDERED: Melatonin 3 MG Tab PO PRN (19:26)
[2024-06-02] MEDS ORDERED: Acetaminophen 325 MG Tab PO PRN (19:26)
[2024-06-02] MEDS ORDERED: Sodium Chloride 0.9% 1,000 ML IV SCH (19:30)
[2024-06-02] MEDS ORDERED: Non-Formulary Medication 1 Each (Amlodipine 10 MG Tablet) PO SCH (19:30)
[2024-06-02] MEDS ORDERED: Polyethylene Glycol 3350 Powder 17 GM Packet PO SCH (19:30)
[2024-06-02] MEDS ORDERED: traZODone 50 MG Tab PO PRN (19:30)
[2024-06-02] MEDS ORDERED: Nitroglycerin 0.4 MG Tab.SL SL PRN (19:30)
[2024-06-02] MEDS: Acetaminophen/oxyCODONE 325-10 MG Tab PO ONE (19:37)
[2024-06-02 19:55] LABS: HEMOGLOBIN A1C 6.2 %
[2024-06-02] MEDS ORDERED: Metoprolol Tartrate 25 MG Tab PO SCH (21:00)
[2024-06-02] MEDS ORDERED: cloNIDine 0.1 MG Tab PO SCH (21:00)
[2024-06-02] MEDS ORDERED: atorvaSTATin 40 MG Tab PO SCH (21:00)
[2024-06-02] MEDS ORDERED: Sodium Bicarbonate 650 MG Tab PO SCH (22:00)
[2024-06-03] MEDS ORDERED: Aspirin 81 MG Tab.EC PO SCH (09:00)
[2024-06-03] MEDS ORDERED: Clopidogrel 75 MG Tab PO SCH (09:00)
== END 2024-06-02 20:06 | disposition home or self-care (01) ==
LOC: MW.ED 15:46
DX: I25.118 Atherosclerotic heart disease of native coronary artery with other forms of angina pectoris (principal); E87.5 Hyperkalemia; I25.2 Old myocardial infarction; I10 Essential (primary) hypertension; E78.00 Pure hypercholesterolemia, unspecified; E11.42 Type 2 diabetes mellitus with diabetic polyneuropathy; Z96.659 Presence of unspecified artificial knee joint; Z79.82 Long term (current) use of aspirin; Z79.4 Long term (current) use of insulin; Z79.84 Long term (current) use of oral hypoglycemic drugs; Z79.899 Other long term (current) drug therapy; Z75.8 Other problems related to medical facilities and other health care
CPT/HCPCS: 36415; 71045; 71260; 74177; 80048; 80053; 80061; 83036; 83735; 84443; 84484; 85025; 87428; 93005; 96361; 96374; 96375; 99285; A9270; J1940; J2270; J7120; Q9967; J3490

== ENCOUNTER 2024-08-30 10:49 | Emergency (ER) | payer MEDICAID, MEDICARE ==
[2024-08-30] MEDS ORDERED: Sodium Chloride 0.9% 10 ML Syringe FLUSH PRN (11:28)
[2024-08-30] MEDS: Aspirin 81 MG Tab.Chew PO ONE (11:37)
[2024-08-30] MEDS: Nitroglycerin 2% Oint 1 GM UD Packet TOP ONE (11:38)
[2024-08-30] MEDS: Nitroglycerin 0.4 MG Tab.SL SL ONE (11:38)
[2024-08-30 11:41] LABS: BASOPHILS ABSOLUTE AUTO 0.05 K/uL (0.00-0.20); BASOPHILS PERCENT AUTO 0.5 % (0.0-1.0); EOSINOPHILS ABSOLUTE AUTO 0.17 K/uL (0.00-0.45); EOSINOPHILS PERCENT AUTO 1.7 % (0.0-6.0); HEMATOCRIT 38.7 % (42.0-52.0); HEMOGLOBIN 13.3 g/dL (14.0-18.0); IMMATURE GRAN ABSOLUTE AUTO 0.02 K/uL (0.00-0.05); IMMATURE GRAN PERCENT AUTO 0.2 % (0.0-0.4); LYMPHOCYTES ABSOLUTE AUTO 1.58 K/uL (1.00-4.80); LYMPHOCYTES PERCENT AUTO 16.1 % (24.0-44.0); MEAN CORPUSCULAR HEMOGLOBIN 30.3 pg (28.0-32.0); MEAN CORPUSCULAR HGB CONC 34.4 g/dL (32.0-36.0); MEAN CORPUSCULAR VOLUME 88.2 fL (83.0-99.0); MEAN PLATELET VOLUME 10.6 fL (9.4-12.4); MONOCYTES ABSOLUTE AUTO 0.43 K/uL (0.00-0.80); MONOCYTES PERCENT AUTO 4.4 % (0.0-8.0); NEUTROPHILS ABSOLUTE AUTO 7.57 K/uL (1.80-7.70); NEUTROPHILS PERCENT AUTO 77.1 % (41.0-71.0); PLATELET COUNT,PLT 146 K/uL (150-400); RED BLOOD CELL COUNT 4.39 M/uL (4.52-5.90); WHITE BLOOD CELL COUNT,WBC 9.82 K/uL (3.9-11.3)
[2024-08-30 11:53] LABS: A/G RATIO 0.9 (0.9-1.6); ALBUMIN 3.7 g/dL (3.4-5.0); BILIRUBIN TOTAL 0.8 mg/dL (0.2-1.0); CALCIUM 9.3 mg/dL (8.5-10.1); CARBON DIOXIDE,CO2 21.8 mmol/L (21.0-32.0); CREATININE 1.8 mg/dL (0.8-1.3); EST CRCL DRUG DOSING (CG) 34.83 mL/min; MAGNESIUM 2.1 mg/dL (1.8-2.4); POTASSIUM,K 5.2 mmol/L (3.5-5.1); PROTEIN TOTAL,TP 7.6 g/dL (6.4-8.2)
[2024-08-30] MEDS ORDERED: Naloxone 0.4 MG/ML SDV IVPUSH PRN (12:48)
[2024-08-30] MEDS: Morphine 4 MG/ML Syringe IVPUSH ONE (12:53)
== END 2024-08-30 15:47 | disposition home or self-care (01) ==
LOC: MW.ED 10:49
DX: R07.89 Other chest pain (principal); I25.10 Atherosclerotic heart disease of native coronary artery without angina pectoris; I10 Essential (primary) hypertension; E78.00 Pure hypercholesterolemia, unspecified; I25.2 Old myocardial infarction; E11.9 Type 2 diabetes mellitus without complications; Z79.899 Other long term (current) drug therapy; Z79.4 Long term (current) use of insulin; Z79.84 Long term (current) use of oral hypoglycemic drugs; Z79.82 Long term (current) use of aspirin; Z95.1 Presence of aortocoronary bypass graft
CPT/HCPCS: 36415; 71045; 80053; 83690; 83735; 84484; 85025; 93005; 93975; 96374; 99285; A9270; J2270; 93010; 99283

== ENCOUNTER 2024-09-04 11:59 | Emergency (ER) | payer MEDICAID ==
[2024-09-04] MEDS ORDERED: Sodium Chloride 0.9% 2.5 ML Syringe FLUSH PRN (12:28)
[2024-09-04] MEDS ORDERED: Sodium Chloride 0.9% 10 ML Syringe FLUSH PRN (12:28)
[2024-09-04] MEDS: Lidocaine 4% Patch TOP PRN (12:44)
[2024-09-04] MEDS: Acetaminophen 500 MG Tab PO ONE (12:44)
[2024-09-04 12:58] LABS: BASOPHILS ABSOLUTE AUTO 0.06 K/uL (0.00-0.20); BASOPHILS PERCENT AUTO 0.6 % (0.0-1.0); EOSINOPHILS ABSOLUTE AUTO 0.23 K/uL (0.00-0.45); EOSINOPHILS PERCENT AUTO 2.2 % (0.0-6.0); HEMATOCRIT 38.8 % (42.0-52.0); HEMOGLOBIN 13.9 g/dL (14.0-18.0); IMMATURE GRAN ABSOLUTE AUTO 0.03 K/uL (0.00-0.05); IMMATURE GRAN PERCENT AUTO 0.3 % (0.0-0.4); LYMPHOCYTES ABSOLUTE AUTO 2.35 K/uL (1.00-4.80); LYMPHOCYTES PERCENT AUTO 22.4 % (24.0-44.0); MEAN CORPUSCULAR HEMOGLOBIN 31.5 pg (28.0-32.0); MEAN CORPUSCULAR HGB CONC 35.8 g/dL (32.0-36.0); MEAN PLATELET VOLUME 11.2 fL (9.4-12.4); MONOCYTES ABSOLUTE AUTO 0.51 K/uL (0.00-0.80); MONOCYTES PERCENT AUTO 4.9 % (0.0-8.0); NEUTROPHILS ABSOLUTE AUTO 7.31 K/uL (1.80-7.70); NEUTROPHILS PERCENT AUTO 69.6 % (41.0-71.0); PLATELET COUNT,PLT 178 K/uL (150-400); RED BLOOD CELL COUNT 4.41 M/uL (4.52-5.90); WHITE BLOOD CELL COUNT,WBC 10.49 K/uL (3.9-11.3)
[2024-09-04 13:13] LABS: A/G RATIO 0.9 (0.9-1.6); ALBUMIN 3.7 g/dL (3.4-5.0); BILIRUBIN TOTAL 0.8 mg/dL (0.2-1.0); CALCIUM 8.7 mg/dL (8.5-10.1); CARBON DIOXIDE,CO2 23.5 mmol/L (21.0-32.0); CREATININE 1.8 mg/dL (0.8-1.3); EST CRCL DRUG DOSING (CG) 34.83 mL/min; POTASSIUM,K 4.3 mmol/L (3.5-5.1); PROTEIN TOTAL,TP 7.7 g/dL (6.4-8.2)
[2024-09-04] MEDS: Morphine 4 MG/ML Syringe IVPUSH ONE ×2 (14:34→17:24)
[2024-09-04] MEDS: Ondansetron 4 MG/2 ML SDV IVPUSH ONE (14:34)
[2024-09-04] MEDS: Cyclobenzaprine 10 MG Tab PO ONE (20:21)
== END 2024-09-04 20:25 | disposition home or self-care (01) ==
LOC: MW.ED 11:59
DX: I25.118 Atherosclerotic heart disease of native coronary artery with other forms of angina pectoris (principal); M54.2 Cervicalgia; I10 Essential (primary) hypertension; I25.2 Old myocardial infarction; E78.00 Pure hypercholesterolemia, unspecified; E11.9 Type 2 diabetes mellitus without complications; Z95.5 Presence of coronary angioplasty implant and graft; Z95.1 Presence of aortocoronary bypass graft; Z75.8 Other problems related to medical facilities and other health care; Z79.82 Long term (current) use of aspirin; Z79.899 Other long term (current) drug therapy; Z79.4 Long term (current) use of insulin; Z79.02 Long term (current) use of antithrombotics/antiplatelets; Z79.84 Long term (current) use of oral hypoglycemic drugs
CPT/HCPCS: 36415; 80053; 84484; 85025; 87428; 93005; 96374; 96375; 96376; 99284; A9270; J2270; J2405; J3360; 93010

== ENCOUNTER 2024-10-28 10:26 | Emergency (ER) | payer MEDICARE, MEDICAID ==
[2024-10-28] MEDS ORDERED: Sodium Chloride 0.9% 20 ML SDV IV PRN (11:03)
[2024-10-28] MEDS ORDERED: Sodium Chloride 0.9% 2.5 ML Syringe FLUSH PRN (11:03)
[2024-10-28] MEDS ORDERED: Sodium Chloride 0.9% 10 ML Syringe FLUSH PRN (11:03)
[2024-10-28 11:31] LABS: BASOPHILS ABSOLUTE AUTO 0.05 K/uL (0.00-0.20); BASOPHILS PERCENT AUTO 0.5 % (0.0-1.0); EOSINOPHILS ABSOLUTE AUTO 0.17 K/uL (0.00-0.45); EOSINOPHILS PERCENT AUTO 1.7 % (0.0-6.0); HEMATOCRIT 40.8 % (42.0-52.0); HEMOGLOBIN 13.9 g/dL (14.0-18.0); IMMATURE GRAN ABSOLUTE AUTO 0.03 K/uL (0.00-0.05); IMMATURE GRAN PERCENT AUTO 0.3 % (0.0-0.4); LYMPHOCYTES PERCENT AUTO 15.6 % (24.0-44.0); MEAN CORPUSCULAR HEMOGLOBIN 30.3 pg (28.0-32.0); MEAN CORPUSCULAR HGB CONC 34.1 g/dL (32.0-36.0); MEAN CORPUSCULAR VOLUME 89.1 fL (83.0-99.0); MEAN PLATELET VOLUME 10.9 fL (9.4-12.4); MONOCYTES ABSOLUTE AUTO 0.49 K/uL (0.00-0.80); MONOCYTES PERCENT AUTO 4.8 % (0.0-8.0); NEUTROPHILS ABSOLUTE AUTO 7.91 K/uL (1.80-7.70); NEUTROPHILS PERCENT AUTO 77.1 % (41.0-71.0); PLATELET COUNT,PLT 160 K/uL (150-400); RED BLOOD CELL COUNT 4.58 M/uL (4.52-5.90); WHITE BLOOD CELL COUNT,WBC 10.25 K/uL (3.9-11.3)
[2024-10-28] MEDS ORDERED: Naloxone 0.4 MG/ML SDV IVPUSH PRN (11:35)
[2024-10-28] MEDS: Morphine 2 MG/ML SYRINGE IVPUSH ONE (11:47)
[2024-10-28 11:54] LABS: A/G RATIO 0.8 (0.9-1.6); ALBUMIN 3.2 g/dL (3.4-5.0); BILIRUBIN TOTAL 0.7 mg/dL (0.2-1.0); CALCIUM 8.4 mg/dL (8.5-10.1); CARBON DIOXIDE,CO2 19.4 mmol/L (21.0-32.0); CREATININE 1.9 mg/dL (0.8-1.3); EST CRCL DRUG DOSING (CG) 31.89 mL/min; MAGNESIUM 1.9 mg/dL (1.8-2.4); POTASSIUM,K 5.3 mmol/L (3.5-5.1)
[2024-10-28 11:56] LABS: INR 1.1 (0.86-1.11); PTT,PARTIAL THROMBOPLSTIN TIME 21.2 SEC (23.9-30.7)
[2024-10-28] MEDS: Baclofen 10 MG Tab PO ONE (15:01)
[2024-10-28] MEDS: Sodium Zirconium Cyclosilicate 10 GM Packet PO ONE (15:41)
[2024-10-28 15:52] LABS: APPEARANCE,URINE CLEAR; BILIRUBIN,URINE NEGATIVE (NEGATIVE); COLOR,URINE YELLOW; GLUCOSE,URINE 250 mg/dL (NEGATIVE); KETONES,URINE TRACE mg/dL (NEGATIVE); LEUKOCYTE ESTERASE,URINE NEGATIVE (NEGATIVE); NITRITE,URINE NEGATIVE (NEGATIVE); OCCULT BLOOD,URINE SMALL (NEGATIVE); PH,URINE 5.5 (5.0-8.0); PROTEIN,URINE >=300 mg/dL (NEGATIVE); UROBILINOGEN,URINE 0.2 EU/dL (<2.0)
[2024-10-28 16:01] LABS: BACTERIA,URINE RARE (NEGATIVE); EPITHELIAL CELLS,URINE RARE (NONE-FEW); RBC,URINE 0-1 (0-2/HPF); WBC,URINE 0-1 (0-5/HPF)
[2024-10-28] MEDS ORDERED: Lidocaine 4% Patch TOP PRN (16:07)
== END 2024-10-29 18:11 | disposition home or self-care (01) ==
LOC: MW.ED 10:26
DX: M54.50 Low back pain, unspecified (principal); I12.9 Hypertensive chronic kidney disease with stage 1 through stage 4 chronic kidney disease, or unspecified chronic kidney disease; E11.22 Type 2 diabetes mellitus with diabetic chronic kidney disease; N18.32 Chronic kidney disease, stage 3b; E78.00 Pure hypercholesterolemia, unspecified; I25.10 Atherosclerotic heart disease of native coronary artery without angina pectoris; Z79.899 Other long term (current) drug therapy; Z79.4 Long term (current) use of insulin; Z79.82 Long term (current) use of aspirin; W01.0XXA Fall on same level from slipping, tripping and stumbling without subsequent striking against object, initial encounter
CPT/HCPCS: 36415; 70450; 71045; 71250; 72125; 73521; 74176; 80053; 81001; 83735; 83880; 84484; 85025; 85610; 85730; 93005; 96374; 99285; A9270; J2270; 72128; 72128-26; 72131; 72131-26; 99283